=== PATIENT | female | born 1965 | race Caucasian/White ===

== ENCOUNTER 2016-04-22 09:01 | Emergency (ER) | payer BC ==
[~2016-04-22] VITALS: Ht 157.5 cm; Wt 109.8 kg
[~2016-04-22 09:01] MED LIST: CITA10TA59 PO; HYDR25TA4 PO
[2016-04-22] MEDS ORDERED: SODIUM CHLORIDE 0.9% 1,000 ML IV ONE ×2 (09:35→10:16)
[2016-04-22 09:38] LABS: Basophils # (auto) 0 uL; Basophils % (auto) 0.4 % (0.0-2.0); Eosinophils # (auto) 0.2 uL; Eosinophils % (auto) 2.3 % (0.0-7.0); Hematocrit 45.8 % (36.0-46.0); Hemoglobin 15.4 g/dL (12.2-16.2); Lymphocytes # (auto) 2.8 uL; Lymphocytes % (auto) 27.9 % (10.0-50.0); Mean Corpuscular Hemoglobin 29.5 pg (28.0-32.0); Mean Corpuscular Hgb Conc. 33.5 g/dL (32.0-36.0); Mean Platelet Volume 8.3 fL (7.4-10.4); Monocytes # (auto) 0.7 uL; Monocytes % (auto) 7.3 % (0.0-12.0); Neutrophils # (auto) 6.2 uL; Neutrophils % (auto) 62.1 % (37.0-80.0); Platelet Count (auto) 279 10^3/uL (140-450); Red Cell Distribution Width 13.6 % (11.6-16.0)
[2016-04-22] MEDS ORDERED: MECLIZINE HCL 25 MG TAB PO ONE (09:45)
[2016-04-22 09:49] VITALS: BP 119/79
[2016-04-22 10:01] LABS: Albumin 3.7 g/dL (3.4-5.0); Anion Gap 3 (5-15); Aspartate Aminotransferase 13 U/L (15-37); BUN/Creatinine Ratio 14.1; Blood Urea Nitrogen 9 mg/dL (7-18); Calcium 8.8 mg/dL (8.5-10.1); Carbon Dioxide 30 mmol/L (21-32); Chloride 104 mmol/L (98-107); GFR African American 126 mL/min; GFR Non-African American 104 mL/min; Glucose 102 mg/dL (74-106); Magnesium 2.2 mg/dL (1.6-2.6); Potassium 3.9 mmol/L (3.5-5.1); Sodium 137 mmol/L (136-145)
[2016-04-22 10:05] LABS: Alkaline Phosphatase 121 U/L (45-117); Bilirubin, Total 0.2 mg/dL (0.2-1.0); Total Protein 6.9 g/dL (6.4-8.2)
[2016-04-22 10:20] LABS: Urine RBC None Seen /hpf (0 - 4)
[2016-04-22 10:39] LABS: Urine Bilirubin Negative (Negative); Urine Blood Negative /uL (Negative); Urine Color Yellow (Yellow); Urine Glucose Normal (Normal); Urine Ketone Negative (Negative); Urine Nitrite Negative (Negative); Urine Squamous Epithelial Cell FEW /hpf (<5); Urine Urobilinogen Normal (Negative); Urine pH 5.5 (5.0-8.0)
== END 2016-04-22 12:32 | disposition home or self-care (01) ==
LOC: ER 09:02
DX: R42 Dizziness and giddiness (principal); E86.0 Dehydration; R51 Headache; Z79.899 Other long term (current) drug therapy
CPT/HCPCS: 36415; 80053; 81001; 82962; 83735; 84443; 84484; 85025; 93005; 96360; 99285; J7030; J8597

== ENCOUNTER 2016-10-12 14:28 | Emergency (ER) | payer BC ==
[~2016-10-12] VITALS: Ht 160 cm; Wt 107.5 kg
[2016-10-12 14:49] VITALS: BP 130/81
[2016-10-12] MEDS ORDERED: KETOROLAC TROMETH 60MG/2ML VIAL IM ONE (15:15)
== END 2016-10-12 16:41 | disposition home or self-care (01) ==
LOC: ER 14:35
DX: S42.002A Fracture of unspecified part of left clavicle, initial encounter for closed fracture (principal); S70.02XA Contusion of left hip, initial encounter; V43.52XA Car driver injured in collision with other type car in traffic accident, initial encounter; Y93.89 Activity, other specified; Y92.89 Other specified places as the place of occurrence of the external cause; Y99.8 Other external cause status
CPT/HCPCS: 73000; 73010; 96372; 99284; J1885

== ENCOUNTER 2017-02-11 18:00 | Emergency (ER) | payer BC, OTHER ==
[~2017-02-11] VITALS: Ht 160 cm; Wt 105.2 kg
[2017-02-11 18:34] VITALS: BP 128/76
[2017-02-11 20:23] LABS: Hepatitis B Surface Antibody Negative
[2017-02-11 20:34] LABS: Hepatitis B Surface Antigen Negative (Negative)
== END 2017-02-11 18:57 | disposition home or self-care (01) ==
LOC: EDUNIT# 18:04 → ER 18:04
DX: S61.239A Puncture wound without foreign body of unspecified finger without damage to nail, initial encounter (principal); W46.0XXA Contact with hypodermic needle, initial encounter; Y93.89 Activity, other specified; Y99.8 Other external cause status; Y92.89 Other specified places as the place of occurrence of the external cause
CPT/HCPCS: 36415; 86703; 86706; 86803; 87340

== ENCOUNTER 2017-03-28 15:22 | Emergency (ER) | payer BC, OTHER ==
[~2017-03-28] VITALS: Ht 160 cm; Wt 112.0 kg
[2017-03-28 16:10] LABS: Basophils # (auto) 0.1 uL; Basophils % (auto) 1.1 % (0.0-2.0); Eosinophils # (auto) 0.3 uL; Eosinophils % (auto) 2.5 % (0.0-7.0); Hemoglobin 16.6 g/dL (12.2-16.2); Lymphocytes # (auto) 3.5 uL; Lymphocytes % (auto) 31.4 % (10.0-50.0); Mean Corpuscular Hemoglobin 29.8 pg (28.0-32.0); Mean Corpuscular Hgb Conc. 33.8 g/dL (32.0-36.0); Monocytes # (auto) 0.7 uL; Monocytes % (auto) 6.7 % (0.0-12.0); Neutrophils # (auto) 6.5 uL; Neutrophils % (auto) 58.3 % (37.0-80.0); Nucleated Red Blood Cells % 0.7 %; Platelet Count (auto) 277 10^3/uL (140-450); Red Blood Cells 5.57 10^6/uL (4.0-5.20); Red Cell Distribution Width 13.5 % (11.8-14.3); White Blood Cell 11.1 10^3/uL (4.4-10.8)
[2017-03-28] MEDS ORDERED: SODIUM CHLORIDE 0.9% 2,000 ML IV ONE (16:15)
[2017-03-28] MEDS ORDERED: CYANOCOBALAMIN (B-12) 1000 MCG/1 ML VIAL IM ONE (16:15)
[2017-03-28] MEDS ORDERED: PIPERACILLIN-TAZOB 3.375GM 50 ML IV ONE (16:15)
[2017-03-28 16:27] LABS: Albumin 3.6 g/dL (3.4-5.0); BUN/Creatinine Ratio 19.6; Calcium 8.8 mg/dL (8.5-10.1); Potassium 3.6 mmol/L (3.5-5.1)
[2017-03-28 16:30] LABS: Bilirubin, Total 0.2 mg/dL (0.2-1.0); Total Protein 7.4 g/dL (6.4-8.2)
[2017-03-28 18:07] VITALS: BP 122/69
[2017-03-28] MEDS ORDERED: SODIUM CHLORIDE 0.9% 1,000 ML IV ONE (18:30)
== END 2017-03-28 18:58 | disposition home or self-care (01) ==
LOC: ER 15:24
DX: J06.9 Acute upper respiratory infection, unspecified (principal); E86.0 Dehydration; Z90.49 Acquired absence of other specified parts of digestive tract; Z90.710 Acquired absence of both cervix and uterus; Z90.89 Acquired absence of other organs
CPT/HCPCS: 36415; 71046; 80053; 85025; 87804; 93005; 96365; 96372; 99285; J2543; J3420; J7030

== ENCOUNTER → 2017-05-26 | Outpatient (CLI) | payer BC ==
[2017-05-26 08:07] LABS: Basophils # (auto) 0.1 uL; Basophils % (auto) 0.8 % (0.0-2.0); Eosinophils # (auto) 0.2 uL; Eosinophils % (auto) 2.2 % (0.0-7.0); Hematocrit 47.3 % (36.0-46.0); Hemoglobin 16.4 g/dL (12.2-16.2); Lymphocytes # (auto) 2.2 uL; Lymphocytes % (auto) 22.7 % (10.0-50.0); Mean Corpuscular Hemoglobin 30.1 pg (28.0-32.0); Mean Corpuscular Hgb Conc. 34.6 g/dL (32.0-36.0); Mean Corpuscular Volume 87.1 fL (80.0-100.0); Monocytes # (auto) 0.7 uL; Neutrophils # (auto) 6.4 uL; Neutrophils % (auto) 67.3 % (37.0-80.0); Nucleated Red Blood Cells % 0.1 %; Platelet Count (auto) 260 10^3/uL (140-450); Red Blood Cells 5.43 10^6/uL (4.0-5.20); Red Cell Distribution Width 13.9 % (11.8-14.3); White Blood Cell 9.5 10^3/uL (4.4-10.8)
[2017-05-26 08:30] LABS: Urine Bacteria NONE SEEN /hpf (None Seen); Urine Blood Negative /uL (Negative); Urine Specific Gravity 1.023 (1.001-1.035); Urine WBC 1 /hpf (0 - 5)
[2017-05-26 08:31] LABS: Albumin 3.7 g/dL (3.4-5.0); BUN/Creatinine Ratio 13.9; Bilirubin, Total 0.4 mg/dL (0.2-1.0); Calcium 9.1 mg/dL (8.5-10.1); Potassium 3.9 mmol/L (3.5-5.1); Total Protein 7.6 g/dL (6.4-8.2)
== END | disposition home or self-care (01) ==
LOC: LAB 07:30
DX: E16.2 Hypoglycemia, unspecified (principal); E11.9 Type 2 diabetes mellitus without complications; Z79.899 Other long term (current) drug therapy
CPT/HCPCS: 36415; 80053; 80061; 81001; 82607; 83036; 84443; 85025

== ENCOUNTER → 2017-09-01 | Outpatient (CLI) | payer BC ==
[2017-09-01 10:54] LABS: Basophils # (auto) 0.1 uL; Basophils % (auto) 0.6 % (0.0-2.0); Eosinophils # (auto) 0.2 uL; Eosinophils % (auto) 1.8 % (0.0-7.0); Hematocrit 45.9 % (36.0-46.0); Hemoglobin 15.9 g/dL (12.2-16.2); Lymphocytes # (auto) 2.6 uL; Lymphocytes % (auto) 25.1 % (10.0-50.0); Mean Corpuscular Hemoglobin 30.5 pg (28.0-32.0); Mean Corpuscular Hgb Conc. 34.7 g/dL (32.0-36.0); Monocytes # (auto) 0.6 uL; Monocytes % (auto) 6.1 % (0.0-12.0); Neutrophils # (auto) 6.9 uL; Neutrophils % (auto) 66.4 % (37.0-80.0); Nucleated Red Blood Cells % 0.1 %; Platelet Count (auto) 251 10^3/uL (140-450); Red Blood Cells 5.21 10^6/uL (4.0-5.20); Red Cell Distribution Width 13.9 % (11.8-14.3); White Blood Cell 10.4 10^3/uL (4.4-10.8)
[2017-09-01 10:56] LABS: Urine Amorphous Crystal FEW /hpf (None Seen); Urine Bacteria FEW /hpf (None Seen); Urine Blood Negative /uL (Negative); Urine Specific Gravity 1.012 (1.001-1.035); Urine WBC <1 /hpf (0 - 5)
[2017-09-01 11:21] LABS: Free T4 (Free Thyroxine) 1.16 ng/dL (0.89-1.76); Leuteinizing Hormone 17.8 IU/L; Prolactin 6.1 ng/mL (2.8-29.2); T3 Total 1.11 ng/mL (0.60-1.81)
[2017-09-01 11:22] LABS: Follicle Stimulating Hormone 42.21 IU/L (SEE BELOW); Free T3 3.43 pg/mL (2.3-4.2)
[2017-09-01 11:28] LABS: Albumin 3.6 g/dL (3.4-5.0); Bilirubin, Total 0.4 mg/dL (0.2-1.0); Calcium 8.9 mg/dL (8.5-10.1); Potassium 3.7 mmol/L (3.5-5.1); Total Protein 7.3 g/dL (6.4-8.2)
== END | disposition home or self-care (01) ==
LOC: LAB 09:54
DX: E11.42 Type 2 diabetes mellitus with diabetic polyneuropathy (principal); I10 Essential (primary) hypertension; F33.3 Major depressive disorder, recurrent, severe with psychotic symptoms
CPT/HCPCS: 36415; 80053; 80061; 81001; 82043; 82607; 82670; 83001; 83002; 83036; 84146; 84439; 84443; 84480; 84481; 85025; 86038; 87086

== ENCOUNTER 2018-04-30 11:29 | Emergency (ER) | payer BC ==
[~2018-04-30] VITALS: Ht 160 cm; Wt 105.2 kg
[2018-04-30] MEDS ORDERED: SODIUM CHLORIDE 0.9% 500 ML IV ONE (11:35)
[2018-04-30 11:46] VITALS: BP 122/75
[2018-04-30 11:48] LABS: Basophils # (auto) 0.1 uL; Basophils % (auto) 0.7 % (0.0-2.0); Eosinophils # (auto) 0.2 uL; Eosinophils % (auto) 2.3 % (0.0-7.0); Hematocrit 48.2 % (36.0-46.0); Hemoglobin 16.3 g/dL (12.2-16.2); Lymphocytes # (auto) 3.6 uL; Lymphocytes % (auto) 34.3 % (10.0-50.0); Mean Corpuscular Hemoglobin 29.7 pg (28.0-32.0); Mean Corpuscular Hgb Conc. 33.8 g/dL (32.0-36.0); Mean Corpuscular Volume 87.7 fL (80.0-100.0); Monocytes # (auto) 0.7 uL; Monocytes % (auto) 6.8 % (0.0-12.0); Neutrophils % (auto) 55.9 % (37.0-80.0); Nucleated Red Blood Cells % 0.1 %; Platelet Count (auto) 257 10^3/uL (140-450); Red Blood Cells 5.49 10^6/uL (4.0-5.20); Red Cell Distribution Width 13.4 % (11.8-14.3); White Blood Cell 10.6 10^3/uL (4.4-10.8)
[2018-04-30 12:06] LABS: Alanine Aminotransferase 29 U/L (13-56); Albumin 3.8 g/dL (3.4-5.0); Anion Gap 6 (5-15); Aspartate Aminotransferase 12 U/L (15-37); BUN/Creatinine Ratio 13.1; Blood Urea Nitrogen 8 mg/dL (7-18); Calcium 9.1 mg/dL (8.5-10.1); Carbon Dioxide 32 mmol/L (21-32); Chloride 101 mmol/L (98-107); GFR African American 132 mL/min; GFR Non-African American 109 mL/min; Glucose 116 mg/dL (74-106); Magnesium 2.3 mg/dL (1.6-2.6); Potassium 3.5 mmol/L (3.5-5.1); Sodium 139 mmol/L (136-145)
[2018-04-30 12:07] LABS: INR 0.92 (0.9-1.15); Partial Thromboplastin Time 32.5 sec (23.78-33.04); Prothrombin Time 9.9 sec (9.27-12.13)
[2018-04-30 12:11] LABS: Alkaline Phosphatase 103 U/L (45-117); Bilirubin, Total 0.4 mg/dL (0.2-1.0); Total Protein 7.7 g/dL (6.4-8.2)
== END 2018-04-30 13:20 | disposition home or self-care (01) ==
LOC: ER 11:29
DX: E86.0 Dehydration (principal); F41.9 Anxiety disorder, unspecified; F32.9 Major depressive disorder, single episode, unspecified; Z90.49 Acquired absence of other specified parts of digestive tract; Z90.710 Acquired absence of both cervix and uterus
CPT/HCPCS: 36415; 71046; 80053; 83735; 84484; 85025; 85379; 85610; 85730; 93005; 94761; 96360; 99284; J7040

== ENCOUNTER → 2018-12-25 | Outpatient (CLI) | payer BC ==
[2018-12-25 10:07] LABS: Basophils # (auto) 0.1 uL; Eosinophils # (auto) 0.1 uL; Lymphocytes # (auto) 2.3 uL; Nucleated Red Blood Cells % 0.1 %; Urine Bacteria NONE SEEN /hpf (None Seen); Urine Blood Negative /uL (Negative); Urine Specific Gravity 1.007 (1.001-1.035); Urine WBC <1 /hpf (0 - 5)
[2018-12-25 10:08] LABS: Basophils % (auto) 0.7 % (0.0-2.0); Eosinophils % (auto) 1.2 % (0.0-7.0); Hematocrit 51.1 % (36.0-46.0); Hemoglobin 17.8 g/dL (12.2-16.2); Lymphocytes % (auto) 23.1 % (10.0-50.0); Mean Corpuscular Hemoglobin 30.6 pg (28.0-32.0); Mean Corpuscular Hgb Conc. 34.8 g/dL (32.0-36.0); Mean Corpuscular Volume 87.9 fL (80.0-100.0); Monocytes # (auto) 0.5 uL; Monocytes % (auto) 5.5 % (0.0-12.0); Neutrophils # (auto) 6.8 uL; Neutrophils % (auto) 69.5 % (37.0-80.0); Platelet Count (auto) 258 10^3/uL (140-450); Red Blood Cells 5.82 10^6/uL (4.0-5.20); Red Cell Distribution Width 13.7 % (11.8-14.3); White Blood Cell 9.8 10^3/uL (4.4-10.8)
[2018-12-25 10:37] LABS: Free T4 (Free Thyroxine) 1.04 ng/dL (0.89-1.76); Prolactin 6.37 ng/mL (2.8-29.2)
[2018-12-25 10:38] LABS: Free T3 3.08 pg/mL (2.3-4.2); T3 Total 1.32 ng/mL (0.60-1.81)
[2018-12-25 11:09] LABS: BUN/Creatinine Ratio 12.3; Calcium 9.2 mg/dL (8.5-10.1); Potassium 3.6 mmol/L (3.5-5.1)
[2018-12-25 11:10] LABS: Albumin 3.7 g/dL (3.4-5.0); Bilirubin, Total 0.4 mg/dL (0.2-1.0); CRP High Sensitivity 0.561 mg/dL (< 0.3); Total Protein 7.6 g/dL (6.4-8.2); Uric Acid 5.5 mg/dL (2.6-6.0)
[2018-12-25 11:35] LABS: Phosphorus 3.5 mg/dL (2.5-4.90)
[2018-12-25 11:36] LABS: Magnesium 2.2 mg/dL (1.6-2.6)
== END | disposition home or self-care (01) ==
LOC: LAB 09:24
DX: Z00.00 Encounter for general adult medical examination without abnormal findings (principal); E11.9 Type 2 diabetes mellitus without complications; R53.1 Weakness; N39.0 Urinary tract infection, site not specified; F41.9 Anxiety disorder, unspecified; F32.9 Major depressive disorder, single episode, unspecified; E66.9 Obesity, unspecified; I10 Essential (primary) hypertension; Z90.710 Acquired absence of both cervix and uterus; Z90.49 Acquired absence of other specified parts of digestive tract
CPT/HCPCS: 36415; 80053; 80061; 81001; 82043; 82306; 82607; 82670; 83615; 83735; 84100; 84146; 84403; 84439; 84443; 84480; 84481; 84550; 85025; 85652; 86141; 86431

== ENCOUNTER → 2019-05-24 | Emergency (ER) | payer BC ==
[~2019-05-24] VITALS: Ht 157.5 cm; Wt 117.9 kg
[~2019-05-24] MED LIST changes: +FUROSEMIDE 20 MG TAB PO ONE; +FUROSEMIDE 40 MG TAB ONE
[2019-05-24 17:58] LABS: Basophils # (auto) 0 10 ^3/uL (0-0.2); Basophils % (auto) 0.6 % (0.0-2.0); Eosinophils # (auto) 0.1 10 ^3/uL (0-0.8); Eosinophils % (auto) 2.2 % (0.0-7.0); Hematocrit 42.8 % (36.0-46.0); Hemoglobin 14.5 g/dL (12.2-16.2); Lymphocytes # (auto) 2.6 10 ^3/uL (0.4-5.4); Lymphocytes % (auto) 37.3 % (10.0-50.0); Mean Corpuscular Hemoglobin 30.4 pg (28.0-32.0); Mean Corpuscular Hgb Conc. 33.8 g/dL (32.0-36.0); Mean Corpuscular Volume 89.9 fL (80.0-100.0); Monocytes # (auto) 0.7 10 ^3/uL (0-1.3); Monocytes % (auto) 9.7 % (0.0-12.0); Neutrophils # (auto) 3.5 10 ^3/uL (1.6-8.6); Neutrophils % (auto) 50.2 % (37.0-80.0); Nucleated Red Blood Cells % 0.4 %; Platelet Count (auto) 168 10^3/uL (140-450); Red Blood Cells 4.76 10^6/uL (4.0-5.20); White Blood Cell 6.9 10^3/uL (4.4-10.8)
[2019-05-24 18:19] LABS: Albumin 3.1 g/dL (3.4-5.0); Calcium 8.1 mg/dL (8.5-10.1); Potassium 4.1 mmol/L (3.5-5.1)
[2019-05-24 18:24] LABS: BUN/Creatinine Ratio 14.9; Bilirubin, Total 0.4 mg/dL (0.2-1.0); Total Protein 6.5 g/dL (6.4-8.2)
[2019-05-24 18:42] LABS: Urine WBC None Seen /hpf (0 - 5)
[2019-05-24 18:44] VITALS: BP 133/72
[2019-05-24 19:00] LABS: Urine Bacteria NONE SEEN /hpf (None Seen); Urine Blood Negative /uL (Negative)
== END | disposition home or self-care (01) ==
LOC: ER 17:03 → EEVIPCON 17:03
DX: I11.0 Hypertensive heart disease with heart failure (principal); I50.9 Heart failure, unspecified; E11.9 Type 2 diabetes mellitus without complications; Z90.49 Acquired absence of other specified parts of digestive tract; Z90.710 Acquired absence of both cervix and uterus; Z90.89 Acquired absence of other organs
CPT/HCPCS: 36415; 71045; 80053; 81001; 83036; 83880; 84443; 84484; 85025

== ENCOUNTER 2019-05-25 09:55 | Inpatient (IN) | payer BC ==
[~2019-05-25] VITALS: Ht 157.5 cm; Wt 117.9 kg
[~2019-05-25 09:55] MED LIST changes: -FUROSEMIDE 20 MG TAB PO ONE; -FUROSEMIDE 40 MG TAB ONE
[2019-05-25 10:18] VITALS: BP 132/73
--- NOTE | 2019-05-25 11:06 | NUR ---
ARRIVES TO ROOM 209. DIRECT ADMIT. PLEASANT NO SOB AND LUNG SOUNDS CLEAR. 1 PLUS PITTING TO LOWER EXTREMITIES. DR. EVIN SLAUGHTER'S PT. TELE BOX REQUESTED FROM TELE.
[2019-05-25] MEDS ORDERED: NITROGLYCERIN 0.4 MG SL TAB SL PRN (11:15)
[2019-05-25] MEDS ORDERED: DEXTROSE (50%) 50ML SYRG IV PRN ×2 (11:15)
[2019-05-25] MEDS ORDERED: MORPHINE SULF INJ 2 MG/ML SYRINGE 1ML IV PRN (11:15)
[2019-05-25] MEDS ORDERED: ACCU-CHEK COMFORT CURVE STRIP VI SCH (11:30)
[2019-05-25 12:25] VITALS: BP 111/62
[2019-05-25] MEDS: InsuLIN REG 1unit/0.01ml Soln (100units/ml) SC SCH ×2 (13:04→19:34)
[2019-05-25 16:42] VITALS: BP 102/49
[2019-05-25 16:43] VITALS: BP 111/62
--- NOTE | 2019-05-25 18:00 | NUR ---
ADMISSION ASSESSMENT COMPLETED. REPORTS [facility] HAS DECREASED TO 4/10 AND IS ACCEPTABLE. TOLERATES EVENING MEAL FSBS COVERED WITH SLIDING SCALE INSULIN.
--- NOTE | 2019-05-25 19:19 | NUR ---
Opening Shift Note Assumed care of patient, awake and alert. No S/S of distress/SOB or pain. Instructed on POC and to call for assist PRN, will continue to monitor for changes Q1hr and PRN.
--- NOTE | 2019-05-25 20:00 | NUR ---
IV insertion IV access obtained, via clean sterile technique by inserting 22 gauge catheter on left hand after 1 attempt. IV secured properly. No trauma to site. Patient tolerated well.
[2019-05-25] MEDS: ACETAMINOPHEN 500 MG TAB PO PRN (20:34)
[2019-05-25 21:13] LABS: Urine WBC None Seen /hpf (0 - 5)
[2019-05-25 21:37] LABS: Urine Bacteria NONE SEEN /hpf (None Seen); Urine Blood Negative /uL (Negative); Urine Mucus FEW (None Seen); Urine Specific Gravity 1.028 (1.001-1.035)
[2019-05-25 21:54] VITALS: BP 101/52
[2019-05-25] MEDS ORDERED: InsuLIN REG 1unit/0.01ml Soln (100units/ml) SC SCH (22:00)
[2019-05-26 05:00] VITALS: BP 140/74
[2019-05-26 05:40] LABS: BUN/Creatinine Ratio 25.9; Magnesium 2.2 mg/dL (1.6-2.6); Potassium 4.2 mmol/L (3.5-5.1)
[2019-05-26] MEDS: InsuLIN REG 1unit/0.01ml Soln (100units/ml) SC SCH ×2 (06:36→11:30)
--- NOTE | 2019-05-26 07:27 | NUR ---
Endorsed care to day shift RN. Patient awake with no signs of distress/sob/pain.
[2019-05-26 08:00] VITALS: BP 123/67
--- NOTE | 2019-05-26 08:00 | NUR ---
Opening Shift Note Assumed care of patient, awake and alert. No S/S of distress/SOB or pain. Instructed on POC and to call for assist PRN, will continue to monitor for changes Q1hr and PRN.Bed at lowest locked position, bed side rails up x2 and call light within reach.
[2019-05-26] MEDS: ACETAMINOPHEN 500 MG TAB PO PRN (08:56)
--- NOTE | 2019-05-26 08:59 | NUR ---
Pain Patient c/o headache, rates pain 09/19. Patient requests Tylenol for pain. Will continue to monitor. Addendum: 05/26/19 at 0921 by Joycelyn Finnegan RN Medicated patient per MD orders.
[2019-05-26 09:18] VITALS: BP 114/60
[2019-05-26] MEDS ORDERED: PARoxetine 20 MG TAB PO SCH (10:00)
[2019-05-26] MEDS ORDERED: metFORMIN HYDROCHLORIDE 850 MG TAB PO ONE (10:45)
[2019-05-26 12:52] VITALS: BP 114/60
--- NOTE | 2019-05-26 13:44 | NUR ---
Discharge Discharge instructions given as ordered. Encourage to follow up with PMD as instructed. All questions and concerns addressed. Patient verbalized understanding. Medication reconciliation form completed and copy given to patient. IV removed with catheter intact, pressure dressing applied. Telemetry unit returned to ICU. Patient ambulated to vehicle with all personal belongings, accompanied by staff. No distress noted at time of departure.
== END 2019-05-26 14:00 | disposition home or self-care (01) | DRG 638 ==
LOC: TELE-CENTR 09:59
PROVIDERS: ADMIT Internal Medicine; ATTEND Internal Medicine
DX: E11.65 Type 2 diabetes mellitus with hyperglycemia (principal); Z68.42 Body mass index [BMI] 45.0-49.9, adult; F32.9 Major depressive disorder, single episode, unspecified; E66.01 Morbid (severe) obesity due to excess calories; Z79.84 Long term (current) use of oral hypoglycemic drugs; Z79.899 Other long term (current) drug therapy
CPT/HCPCS: 36415; 71046; 80048; 81001; 82962; 83735; 93005; 93306; G0378; J1815

== ENCOUNTER 2019-06-15 18:56 | Inpatient (IN) | payer BC ==
[~2019-06-15] VITALS: Ht 160 cm; Wt 127.0 kg
[2019-06-15] MEDS ORDERED: ACETAMINOPHEN 500 MG TAB PO PRN (19:00)
[2019-06-15] MEDS ORDERED: DEXTROSE (50%) 50ML SYRG IV PRN (19:00)
[2019-06-15] MEDS ORDERED: HYDROcodone-ACET 5/325MG TAB PO PRN (19:00)
[2019-06-15] MEDS ORDERED: NITROGLYCERIN 0.4 MG SL TAB SL PRN (19:00)
[2019-06-15] MEDS ORDERED: ONDANSETRON HCL 4 MG/2 ML VIAL IV PRN (19:00)
[2019-06-15] MEDS ORDERED: MORPHINE SULF INJ 2 MG/ML SYRINGE 1ML IV PRN ×2 (19:00)
[2019-06-15] MEDS ORDERED: ENALAPRILAT 1.25 MG/ML-1ML VIAL IV PRN (19:30)
[2019-06-15 22:00] VITALS: BP 119/79
[2019-06-15] MEDS ORDERED: TEMAZEPAM 15 MG CAP PO PRN (22:00)
[2019-06-15] MEDS: cefTRIAXone 1GM/50ML D5W 50 ML IV SCH (22:24)
[2019-06-15] MEDS: ACCU-CHEK COMFORT CURVE STRIP VI SCH (22:24)
[2019-06-15] MEDS ORDERED: CEPH250C PO (22:59)
[2019-06-15] MEDS ORDERED: METF-371 PO (22:59)
[2019-06-15] MEDS ORDERED: HCTZ25T PO (22:59)
[2019-06-15] MEDS ORDERED: PAR20T PO (22:59)
[2019-06-15] MEDS: InsuLIN REG 1unit/0.01ml Soln (100units/ml) SC SCH (23:02)
[2019-06-15] MEDS: CLINDAMYCIN 600MG IV 50 ML IV SCH (23:21)
[2019-06-16] VITALS (7 sets, daily range): BP systolic 114–136; BP diastolic 62–77
[2019-06-16] MEDS ORDERED: ENOXAPARIN SOD 150 MG/1 ML SYRINGE SC ONE (01:00)
[2019-06-16 06:05] LABS: Basophils # (auto) 0.1 10 ^3/uL (0-0.2); Basophils % (auto) 0.7 % (0.0-2.0); Eosinophils # (auto) 0.3 10 ^3/uL (0-0.8); Eosinophils % (auto) 3.4 % (0.0-7.0); Hemoglobin 15.5 g/dL (12.2-16.2); Lymphocytes # (auto) 3.3 10 ^3/uL (0.4-5.4); Lymphocytes % (auto) 41.4 % (10.0-50.0); Mean Corpuscular Hemoglobin 29.5 pg (28.0-32.0); Mean Corpuscular Hgb Conc. 33.7 g/dL (32.0-36.0); Mean Corpuscular Volume 87.4 fL (80.0-100.0); Monocytes # (auto) 0.7 10 ^3/uL (0-1.3); Monocytes % (auto) 8.8 % (0.0-12.0); Neutrophils # (auto) 3.6 10 ^3/uL (1.6-8.6); Neutrophils % (auto) 45.7 % (37.0-80.0); Nucleated Red Blood Cells % 0.3 %; Platelet Count (auto) 250 10^3/uL (140-450); Red Blood Cells 5.26 10^6/uL (4.0-5.20); Red Cell Distribution Width 14.3 % (11.8-14.3)
[2019-06-16] MEDS: CLINDAMYCIN 600MG IV 50 ML IV SCH ×3 (06:09→22:30)
[2019-06-16] MEDS: ACCU-CHEK COMFORT CURVE STRIP VI SCH ×4 (06:09→22:30)
[2019-06-16] MEDS: InsuLIN REG 1unit/0.01ml Soln (100units/ml) SC SCH ×4 (06:09→22:36)
[2019-06-16 06:21] LABS: INR 1.02 (0.9-1.15); Partial Thromboplastin Time 33.8 sec (23.64-32.05)
[2019-06-16 06:30] LABS: Potassium 3.5 mmol/L (3.5-5.1)
[2019-06-16 06:35] LABS: BUN/Creatinine Ratio 20.4; Calcium 8.6 mg/dL (8.5-10.1)
[2019-06-16] MEDS ORDERED: metFORMIN HYDROCHLORIDE 850 MG TAB PO SCH (08:00)
[2019-06-16] MEDS: cefTRIAXone 1GM/50ML D5W 50 ML IV SCH (09:21)
[2019-06-16] MEDS: PARoxetine 20 MG TAB PO SCH (09:22)
[2019-06-16] MEDS: FLORASTOR (S. BOULARDII) 250 MG CAP PO SCH (09:22)
[2019-06-16] MEDS: ENOXAPARIN SOD 150 MG/1 ML SYRINGE SC SCH ×2 (09:23→22:30)
[2019-06-16] MEDS: FAMOTIDINE 20 MG TAB PO SCH (09:23)
[2019-06-16] MEDS: HCTZ 25 MG TAB PO SCH (09:26)
[2019-06-17 05:00] VITALS: BP 134/89
[2019-06-17] MEDS: CLINDAMYCIN 600MG IV 50 ML IV SCH (06:31)
[2019-06-17] MEDS: ACCU-CHEK COMFORT CURVE STRIP VI SCH ×2 (06:31→12:33)
[2019-06-17] MEDS: InsuLIN REG 1unit/0.01ml Soln (100units/ml) SC SCH ×2 (06:38→12:33)
[2019-06-17 09:06] VITALS: BP 152/72
[2019-06-17] MEDS: cefTRIAXone 1GM/50ML D5W 50 ML IV SCH (09:39)
[2019-06-17] MEDS: FAMOTIDINE 20 MG TAB PO SCH (09:40)
[2019-06-17] MEDS: PARoxetine 20 MG TAB PO SCH (09:40)
[2019-06-17] MEDS: FLORASTOR (S. BOULARDII) 250 MG CAP PO SCH (09:40)
[2019-06-17] MEDS: HCTZ 25 MG TAB PO SCH (09:40)
[2019-06-17] MEDS ORDERED: APIXABAN 5 MG TAB PO SCH (10:00)
[2019-06-17 12:51] VITALS: BP 140/72
[2019-06-24] MEDS ORDERED: APIXABAN 5 MG TAB PO SCH (10:00)
== END 2019-06-17 13:15 | disposition home or self-care (01) | DRG 300 ==
LOC: WEST WING 18:56 → TELE-EAST 06-16 10:27
PROVIDERS: ADMIT Nurse Practitioner Acute Care; ATTEND Internal Medicine Nephrology
DX: I82.811 Embolism and thrombosis of superficial veins of right lower extremity (principal); I50.32 Chronic diastolic (congestive) heart failure; L03.115 Cellulitis of right lower limb; Z68.42 Body mass index [BMI] 45.0-49.9, adult; E11.9 Type 2 diabetes mellitus without complications; I11.0 Hypertensive heart disease with heart failure; I83.90 Asymptomatic varicose veins of unspecified lower extremity; F32.9 Major depressive disorder, single episode, unspecified; F41.9 Anxiety disorder, unspecified; E66.9 Obesity, unspecified; Z90.710 Acquired absence of both cervix and uterus; Z82.0 Family history of epilepsy and other diseases of the nervous system; Z81.8 Family history of other mental and behavioral disorders; Z82.49 Family history of ischemic heart disease and other diseases of the circulatory system; Z87.891 Personal history of nicotine dependence; Z79.899 Other long term (current) drug therapy; Z79.84 Long term (current) use of oral hypoglycemic drugs; Z90.49 Acquired absence of other specified parts of digestive tract; Z98.51 Tubal ligation status; Z79.01 Long term (current) use of anticoagulants
CPT/HCPCS: 36415; 80048; 82962; 85025; 85610; 85730; 93971; G0378; J0696; J1815; J3490

== ENCOUNTER 2019-08-21 09:34 | Emergency (ER) | payer OTHER, BC ==
[~2019-08-21] VITALS: Ht 160 cm; Wt 104.3 kg
[~2019-08-21 09:34] MED LIST changes: -CITA10TA59 PO; +HCTZ25T PO; -HYDR25TA4 PO; +METF-371 PO; +PAR20T PO
[2019-08-21 09:42] VITALS: BP 124/80
[2019-08-21] MEDS ORDERED: KETOROLAC TROMETH 30 MG/ML 1ML VIAL IV ONE (10:00)
[2019-08-21] MEDS ORDERED: ACETAMINOPHEN/CODEINE#3 (300/30mg) TAB PO ONE (10:00)
== END 2019-08-21 11:17 | disposition home or self-care (01) ==
LOC: EEVIPCON 09:34 → EDBD 09:34 → ER 09:34
DX: S46.912A Strain of unspecified muscle, fascia and tendon at shoulder and upper arm level, left arm, initial encounter (principal); S20.212A Contusion of left front wall of thorax, initial encounter; S40.022A Contusion of left upper arm, initial encounter; E11.9 Type 2 diabetes mellitus without complications; I10 Essential (primary) hypertension; Z90.49 Acquired absence of other specified parts of digestive tract; V43.52XA Car driver injured in collision with other type car in traffic accident, initial encounter; Y93.89 Activity, other specified; Y92.488 Other paved roadways as the place of occurrence of the external cause; Y99.8 Other external cause status
CPT/HCPCS: 71101; 73030; 73060; 96374; 99284; J1885

== ENCOUNTER 2019-08-24 07:55 | Emergency (ER) | payer BC ==
[~2019-08-24] VITALS: Ht 160 cm; Wt 104.3 kg
[2019-08-24 09:00] VITALS: BP 128/82
== END 2019-08-24 09:50 | disposition home or self-care (01) ==
LOC: ER 07:55 → EEVIPCON 07:55 → ER 09:50
DX: S22.32XA Fracture of one rib, left side, initial encounter for closed fracture (principal); S40.022A Contusion of left upper arm, initial encounter; S27.321A Contusion of lung, unilateral, initial encounter; F41.9 Anxiety disorder, unspecified; F32.9 Major depressive disorder, single episode, unspecified; E11.9 Type 2 diabetes mellitus without complications; I10 Essential (primary) hypertension; Z79.01 Long term (current) use of anticoagulants; Z79.899 Other long term (current) drug therapy; V49.9XXA Car occupant (driver) (passenger) injured in unspecified traffic accident, initial encounter; Y93.I9 Activity, other involving external motion; Y92.89 Other specified places as the place of occurrence of the external cause; Y99.8 Other external cause status
CPT/HCPCS: 71250; 73200; 93971

== ENCOUNTER 2019-11-25 12:16 | Emergency (ER) | payer BC ==
[~2019-11-25] VITALS: Ht 160 cm; Wt 105.2 kg
[2019-11-25 12:35] VITALS: BP 136/99
[2019-11-25] MEDS ORDERED: KETOROLAC TROMETH 60MG/2ML VIAL IM ONE (13:45)
[2019-11-25 13:59] LABS: Basophils # (auto) 0.1 10 ^3/uL (0-0.2); Basophils % (auto) 0.8 % (0.0-2.0); Eosinophils # (auto) 0.5 10 ^3/uL (0-0.8); Eosinophils % (auto) 4.8 % (0.0-7.0); Hematocrit 47.7 % (36.0-46.0); Hemoglobin 16.3 g/dL (12.2-16.2); Lymphocytes # (auto) 3.8 10 ^3/uL (0.4-5.4); Lymphocytes % (auto) 37.8 % (10.0-50.0); Mean Corpuscular Hemoglobin 29.8 pg (28.0-32.0); Mean Corpuscular Hgb Conc. 34.2 g/dL (32.0-36.0); Mean Corpuscular Volume 87.2 fL (80.0-100.0); Monocytes # (auto) 0.3 10 ^3/uL (0-1.3); Neutrophils # (auto) 5.3 10 ^3/uL (1.6-8.6); Neutrophils % (auto) 53.6 % (37.0-80.0); Nucleated Red Blood Cells % 0.3 %; Platelet Count (auto) 278 10^3/uL (140-450); Red Blood Cells 5.48 10^6/uL (4.0-5.20); Red Cell Distribution Width 13.9 % (11.8-14.3); White Blood Cell 9.9 10^3/uL (4.4-10.8)
[2019-11-25 14:16] LABS: Albumin 3.7 g/dL (3.4-5.0); Calcium 9.1 mg/dL (8.5-10.1); Magnesium 2.2 mg/dL (1.6-2.6); Potassium 3.5 mmol/L (3.5-5.1)
[2019-11-25 14:21] LABS: BUN/Creatinine Ratio 17.9; Bilirubin, Total 0.4 mg/dL (0.2-1.0); Total Protein 7.4 g/dL (6.4-8.2)
== END 2019-11-25 14:03 | disposition home or self-care (01) ==
LOC: EEVIPCON 12:16 → ER 12:16
DX: R51.9 Headache, unspecified (principal); F41.9 Anxiety disorder, unspecified; E11.9 Type 2 diabetes mellitus without complications; I10 Essential (primary) hypertension; Z90.49 Acquired absence of other specified parts of digestive tract; Z90.710 Acquired absence of both cervix and uterus
CPT/HCPCS: 36415; 70450; 80053; 80061; 83735; 84443; 85025; 96372; 99284; J1885

== ENCOUNTER 2019-12-19 07:36 | Emergency (ER) | payer BC ==
[~2019-12-19] VITALS: Ht 160 cm; Wt 107.0 kg
[2019-12-19 07:39] VITALS: BP 127/85
[2019-12-19] MEDS ORDERED: ACETAMINOPHEN 325 MG TAB PO ONE (09:12)
[2019-12-19] MEDS ORDERED: ACETAMINOPHEN 650 mg PER 20.3 mL UD PO ONE (09:15)
== END 2019-12-19 09:52 | disposition home or self-care (01) ==
LOC: EEVIPCON 07:36 → ER 07:36
DX: B34.9 Viral infection, unspecified (principal); R52 Pain, unspecified; E11.9 Type 2 diabetes mellitus without complications; I10 Essential (primary) hypertension; Z90.49 Acquired absence of other specified parts of digestive tract; Z90.710 Acquired absence of both cervix and uterus; Z20.828 Contact with and (suspected) exposure to other viral communicable diseases
CPT/HCPCS: 36415; 71045; 87070; 87426; 87804; 87880; 99284; C9803; U0003

== ENCOUNTER → 2020-02-07 | Outpatient (CLI) | payer BC | END | disposition home or self-care (01) | LOC: LAB 10:18 | PROVIDERS: ATTEND Student in an Organized Health Care Education/Training Program | DX: Z20.828 Contact with and (suspected) exposure to other viral communicable diseases (principal) | CPT/HCPCS: C9803; U0003 ==

== ENCOUNTER 2020-04-03 07:10 | Emergency (ER) | payer BC ==
[~2020-04-03] VITALS: Ht 160 cm; Wt 108.9 kg
[~2020-04-03 07:10] MED LIST changes: -HCTZ25T PO; +HYDR25TA5 PO
[2020-04-03 07:27] VITALS: BP 123/69
[2020-04-03] MEDS ORDERED: SODIUM CHLORIDE 0.9% 1,000 ML IV ONE (07:30)
[2020-04-03] MEDS ORDERED: LORazepam 2MG/ML-1ML VIAL IV ONE (07:30)
[2020-04-03 08:14] LABS: Albumin 3.7 g/dL (3.4-5.0); Potassium 3.6 mmol/L (3.5-5.1)
[2020-04-03 08:17] LABS: BUN/Creatinine Ratio 27.1; Bilirubin, Total 0.4 mg/dL (0.2-1.0); Total Protein 7.2 g/dL (6.4-8.2)
[2020-04-03 08:35] LABS: Basophils # (auto) 0.1 10 ^3/uL (0-0.2); Basophils % (auto) 0.9 % (0.0-2.0); Eosinophils # (auto) 0.3 10 ^3/uL (0-0.8); Eosinophils % (auto) 3.2 % (0.0-7.0); Hematocrit 46.6 % (36.0-46.0); Hemoglobin 15.9 g/dL (12.2-16.2); Lymphocytes # (auto) 3.7 10 ^3/uL (0.4-5.4); Lymphocytes % (auto) 35.2 % (10.0-50.0); Mean Corpuscular Hemoglobin 29.7 pg (28.0-32.0); Mean Corpuscular Hgb Conc. 34.1 g/dL (32.0-36.0); Mean Corpuscular Volume 87.2 fL (80.0-100.0); Monocytes # (auto) 0.6 10 ^3/uL (0-1.3); Monocytes % (auto) 6.1 % (0.0-12.0); Neutrophils # (auto) 5.8 10 ^3/uL (1.6-8.6); Neutrophils % (auto) 54.6 % (37.0-80.0); Nucleated Red Blood Cells % 0.3 %; Red Blood Cells 5.34 10^6/uL (4.0-5.20); White Blood Cell 10.6 10^3/uL (4.4-10.8)
== END 2020-04-03 10:14 | disposition home or self-care (01) ==
LOC: ER 07:10 → EEVIPCON 07:10 → ER 10:14
DX: F41.9 Anxiety disorder, unspecified (principal); E11.9 Type 2 diabetes mellitus without complications; I10 Essential (primary) hypertension; Z90.49 Acquired absence of other specified parts of digestive tract; Z90.710 Acquired absence of both cervix and uterus; Z79.899 Other long term (current) drug therapy; Z20.822 Contact with and (suspected) exposure to COVID-19
CPT/HCPCS: 36415; 71045; 80053; 85025; 87426; 93005; 96361; 96374; 99285; C9803; J2060; J7030; U0003

== ENCOUNTER 2020-11-19 10:49 | Emergency (ER) | payer BC ==
[~2020-11-19] VITALS: Ht 160 cm; Wt 108.9 kg
[2020-11-19 11:03] VITALS: BP 117/78
== END 2020-11-19 13:28 | disposition home or self-care (01) ==
LOC: EEVIPCON 10:49 → ER 10:49
DX: M47.816 Spondylosis without myelopathy or radiculopathy, lumbar region (principal); F41.9 Anxiety disorder, unspecified; F32.9 Major depressive disorder, single episode, unspecified; E11.9 Type 2 diabetes mellitus without complications; I10 Essential (primary) hypertension; Z79.84 Long term (current) use of oral hypoglycemic drugs; Z79.899 Other long term (current) drug therapy; Z90.89 Acquired absence of other organs; Z90.49 Acquired absence of other specified parts of digestive tract; Z90.710 Acquired absence of both cervix and uterus
CPT/HCPCS: 72131

== ENCOUNTER 2021-02-21 18:20 | Emergency (ER) | payer BC ==
[~2021-02-21] VITALS: Ht 160 cm; Wt 108.9 kg
[2021-02-21 18:59] LABS: Basophils # (auto) 0.1 10 ^3/uL (0-0.2); Basophils % (auto) 0.5 % (0.0-2.0); Eosinophils # (auto) 0.2 10 ^3/uL (0-0.8); Hematocrit 46.9 % (36.0-46.0); Hemoglobin 16.1 g/dL (12.2-16.2); Lymphocytes # (auto) 3.8 10 ^3/uL (0.4-5.4); Lymphocytes % (auto) 32.2 % (10.0-50.0); Mean Corpuscular Hemoglobin 29.8 pg (28.0-32.0); Mean Corpuscular Hgb Conc. 34.4 g/dL (32.0-36.0); Mean Corpuscular Volume 86.7 fL (80.0-100.0); Monocytes % (auto) 8.5 % (0.0-12.0); Neutrophils # (auto) 6.7 10 ^3/uL (1.6-8.6); Neutrophils % (auto) 56.8 % (37.0-80.0); Nucleated Red Blood Cells % 0.2 %; Red Blood Cells 5.42 10^6/uL (4.0-5.20); Red Cell Distribution Width 13.5 % (11.8-14.3); White Blood Cell 11.7 10^3/uL (4.4-10.8)
[2021-02-21 19:16] LABS: Albumin 3.4 g/dL (3.4-5.0); BUN/Creatinine Ratio 16.1; Calcium 8.8 mg/dL (8.5-10.1); Potassium 3.7 mmol/L (3.5-5.1)
[2021-02-21 19:18] LABS: Bilirubin, Total 0.4 mg/dL (0.2-1.0)
[2021-02-21] MEDS ORDERED: ACET30TA15 PO (21:06)
[2021-02-21] MEDS ORDERED: ONDA-144 PO (21:06)
[2021-02-21] MEDS ORDERED: CIPR-173 PO (21:06)
[2021-02-21 21:08] VITALS: BP 107/69
[2021-02-21 21:33] LABS: Urine Bacteria FEW /hpf (None Seen); Urine Blood 1+ /uL (Negative); Urine Specific Gravity 1.022 (1.001-1.035); Urine WBC 4 /hpf (0 - 5)
== END 2021-02-21 21:17 | disposition home or self-care (01) ==
LOC: EEVIPCON 18:20 → ER 18:35
DX: N39.0 Urinary tract infection, site not specified (principal); E11.9 Type 2 diabetes mellitus without complications; I10 Essential (primary) hypertension; Z90.49 Acquired absence of other specified parts of digestive tract; Z90.89 Acquired absence of other organs; Z90.710 Acquired absence of both cervix and uterus; Z20.822 Contact with and (suspected) exposure to COVID-19
CPT/HCPCS: 36415; 74176; 80053; 81001; 82150; 83690; 85025; 87086; 87426

== ENCOUNTER 2021-03-17 11:37 | Emergency (ER) | payer BC ==
[~2021-03-17] VITALS: Ht 160 cm; Wt 110.2 kg
[~2021-03-17 11:37] MED LIST changes: +ACET30TA15 PO; +CIPR-173 PO; +ONDA-144 PO
[2021-03-17 13:07] LABS: Urine Bacteria NONE SEEN /hpf (None Seen); Urine Blood Negative /uL (Negative); Urine Specific Gravity 1.018 (1.001-1.035); Urine WBC <1 /hpf (0 - 5)
[2021-03-17] MEDS ORDERED: HYDROcodone-ACET 10/325MG TAB PO ONE (13:15)
[2021-03-17] MEDS ORDERED: LIDOCAINE 5% TOPICAL PATCH TOP ONE (13:15)
[2021-03-17 13:25] LABS: Albumin 3.6 g/dL (3.4-5.0); Potassium 3.8 mmol/L (3.5-5.1)
[2021-03-17 13:29] LABS: Basophils # (auto) 0.1 10 ^3/uL (0-0.2); Basophils % (auto) 0.6 % (0.0-2.0); Eosinophils # (auto) 0.2 10 ^3/uL (0-0.8); Eosinophils % (auto) 2.1 % (0.0-7.0); Hematocrit 45.9 % (36.0-46.0); Hemoglobin 15.8 g/dL (12.2-16.2); Lymphocytes # (auto) 3.2 10 ^3/uL (0.4-5.4); Lymphocytes % (auto) 30.7 % (10.0-50.0); Mean Corpuscular Hemoglobin 29.9 pg (28.0-32.0); Mean Corpuscular Hgb Conc. 34.4 g/dL (32.0-36.0); Mean Corpuscular Volume 87.1 fL (80.0-100.0); Monocytes # (auto) 0.6 10 ^3/uL (0-1.3); Monocytes % (auto) 5.5 % (0.0-12.0); Neutrophils # (auto) 6.4 10 ^3/uL (1.6-8.6); Neutrophils % (auto) 61.1 % (37.0-80.0); Nucleated Red Blood Cells % 0.2 %; Red Blood Cells 5.28 10^6/uL (4.0-5.20); Red Cell Distribution Width 13.6 % (11.8-14.3); White Blood Cell 10.5 10^3/uL (4.4-10.8)
[2021-03-17 13:31] LABS: BUN/Creatinine Ratio 20.4; Bilirubin, Total 0.3 mg/dL (0.2-1.0)
[2021-03-17] MEDS ORDERED: IOHEXOL 300 MG/ML 100ML BOTTLE IJ ONE (13:51)
[2021-03-17 15:13] VITALS: BP 111/67
[2021-03-17] MEDS ORDERED: HYDR-4798 PO (15:38)
[2021-03-17] MEDS ORDERED: HYDR-4902 PO ×2 (17:39→18:54)
== END 2021-03-17 15:51 | disposition home or self-care (01) ==
LOC: EEVIPCON 11:37 → ER 11:37
DX: R10.9 Unspecified abdominal pain (principal); E11.9 Type 2 diabetes mellitus without complications; I10 Essential (primary) hypertension; Z90.49 Acquired absence of other specified parts of digestive tract; Z90.89 Acquired absence of other organs
CPT/HCPCS: 36415; 74177; 80053; 81001; 83605; 85025; 87086; 99285; Q9967

== ENCOUNTER 2021-06-11 07:21 | Emergency (ER) | payer BC ==
[~2021-06-11] VITALS: Ht 160 cm; Wt 107.0 kg
[2021-06-11 07:31] VITALS: BP 116/75
== END 2021-06-11 08:38 | disposition home or self-care (01) ==
LOC: EEVIPCON 07:21 → ER 07:21
DX: S05.12XA Contusion of eyeball and orbital tissues, left eye, initial encounter (principal); E11.9 Type 2 diabetes mellitus without complications; I10 Essential (primary) hypertension; Z90.49 Acquired absence of other specified parts of digestive tract; Z90.89 Acquired absence of other organs; W01.0XXA Fall on same level from slipping, tripping and stumbling without subsequent striking against object, initial encounter; Y93.89 Activity, other specified; Y92.89 Other specified places as the place of occurrence of the external cause; Y99.8 Other external cause status
CPT/HCPCS: 70486

== ENCOUNTER 2021-07-01 07:05 | Emergency (ER) | payer BC ==
[~2021-07-01] VITALS: Ht 160 cm; Wt 105.2 kg
[2021-07-01] MEDS ORDERED: ACETAMINOPHEN 325 MG TAB PO ONE (07:30)
[2021-07-01 07:50] VITALS: BP 143/69
[2021-07-01] MEDS ORDERED: DOXY-332 PO (08:18)
[2021-07-01] MEDS ORDERED: BENZ100C19 PO (08:18)
== END 2021-07-01 08:18 | disposition home or self-care (01) ==
LOC: ER 07:05
DX: J06.9 Acute upper respiratory infection, unspecified (principal); N39.0 Urinary tract infection, site not specified; I10 Essential (primary) hypertension; E11.9 Type 2 diabetes mellitus without complications; Z90.49 Acquired absence of other specified parts of digestive tract; Z90.89 Acquired absence of other organs; Z90.710 Acquired absence of both cervix and uterus; Z20.822 Contact with and (suspected) exposure to COVID-19
CPT/HCPCS: 36415; 71046; 81002; 87804

== ENCOUNTER 2021-09-17 08:30 | Emergency (ER) | payer BC ==
[~2021-09-17] VITALS: Ht 160 cm; Wt 100.0 kg
[~2021-09-17 08:30] MED LIST changes: +ACE3T PO; +BENZ100C19 PO; +DOXY-332 PO
[2021-09-17] MEDS ORDERED: KETOROLAC TROMETH 60MG/2ML VIAL IM ONE (09:00)
[2021-09-17 09:58] LABS: Basophils # (auto) 0.1 10 ^3/uL (0-0.2); Basophils % (auto) 0.7 % (0.0-2.0); Eosinophils # (auto) 0.3 10 ^3/uL (0-0.8); Eosinophils % (auto) 3.2 % (0.0-7.0); Hematocrit 49.2 % (36.0-46.0); Hemoglobin 16.9 g/dL (12.2-16.2); Lymphocytes # (auto) 3.3 10 ^3/uL (0.4-5.4); Lymphocytes % (auto) 31.5 % (10.0-50.0); Mean Corpuscular Hemoglobin 29.9 pg (28.0-32.0); Mean Corpuscular Hgb Conc. 34.3 g/dL (32.0-36.0); Mean Corpuscular Volume 87.1 fL (80.0-100.0); Monocytes # (auto) 0.6 10 ^3/uL (0-1.3); Neutrophils # (auto) 6.2 10 ^3/uL (1.6-8.6); Neutrophils % (auto) 58.6 % (37.0-80.0); Nucleated Red Blood Cells % 0.2 %; Red Blood Cells 5.65 10^6/uL (4.0-5.20); Red Cell Distribution Width 13.7 % (11.8-14.3); White Blood Cell 10.6 10^3/uL (4.4-10.8)
[2021-09-17 09:59] LABS: Urine Bacteria NONE SEEN /hpf (None Seen); Urine Blood Negative /uL (Negative); Urine Specific Gravity 1.016 (1.001-1.035); Urine WBC <1 /hpf (0 - 5)
[2021-09-17] MEDS ORDERED: ACE3T PO ×2 (10:06→10:08)
[2021-09-17] MEDS ORDERED: IBUP800T27 PO (10:06)
[2021-09-17 10:33] LABS: Albumin 3.8 g/dL (3.4-5.0); Calcium 9.1 mg/dL (8.5-10.1)
[2021-09-17 10:37] LABS: BUN/Creatinine Ratio 19.4; Bilirubin, Total 0.3 mg/dL (0.2-1.0); Total Protein 7.3 g/dL (6.4-8.2)
[2021-09-17 11:08] VITALS: BP 130/68
== END 2021-09-17 11:10 | disposition home or self-care (01) ==
LOC: ER 08:30 → EEVIPCON 08:30 → ER 11:10
DX: E86.0 Dehydration (principal); E11.9 Type 2 diabetes mellitus without complications; I10 Essential (primary) hypertension; Z90.89 Acquired absence of other organs; Z90.710 Acquired absence of both cervix and uterus
CPT/HCPCS: 36415; 74176; 80053; 81001; 85025; 96372; 99284; J1885

== ENCOUNTER 2021-10-06 16:18 | Emergency (ER) | payer BC ==
[~2021-10-06] VITALS: Ht 160 cm; Wt 105.4 kg
[~2021-10-06 16:18] MED LIST changes: +IBUP800T27 PO
[2021-10-06] MEDS ORDERED: CHOLECALCIFEROL (VITD3) 2,000 UNIT CAP/TAB PO ONE (16:45)
[2021-10-06] MEDS ORDERED: SODIUM CHLORIDE 0.9% 1,000 ML IVB ONE (16:45)
[2021-10-06] MEDS ORDERED: SODIUM CHLORIDE 0.9% 1,000 ML IV ONE (16:45)
[2021-10-06] MEDS ORDERED: ASCORBIC ACID 500 MG TAB PO ONE (16:45)
[2021-10-06] MEDS ORDERED: ASPirin-EC 325mg tab PO ONE (16:45)
[2021-10-06] MEDS ORDERED: AZITHROMYCIN 500MG/ 250ML 250 ML IV ONE (16:45)
[2021-10-06] MEDS ORDERED: ZINC SULFATE 220mg CAP or TAB PO ONE (16:45)
[2021-10-06 18:14] LABS: Basophils # (auto) 0.1 10 ^3/uL (0-0.2); Basophils % (auto) 0.7 % (0.0-2.0); Eosinophils # (auto) 0.3 10 ^3/uL (0-0.8); Eosinophils % (auto) 2.7 % (0.0-7.0); Hematocrit 49.6 % (36.0-46.0); Hemoglobin 16.6 g/dL (12.2-16.2); Lymphocytes # (auto) 2.9 10 ^3/uL (0.4-5.4); Lymphocytes % (auto) 31.7 % (10.0-50.0); Mean Corpuscular Hgb Conc. 33.5 g/dL (32.0-36.0); Mean Corpuscular Volume 86.5 fL (80.0-100.0); Monocytes # (auto) 0.5 10 ^3/uL (0-1.3); Monocytes % (auto) 5.3 % (0.0-12.0); Neutrophils # (auto) 5.5 10 ^3/uL (1.6-8.6); Neutrophils % (auto) 59.6 % (37.0-80.0); Nucleated Red Blood Cells % 0.7 %; Red Blood Cells 5.73 10^6/uL (4.0-5.20); Red Cell Distribution Width 13.4 % (11.8-14.3); White Blood Cell 9.2 10^3/uL (4.4-10.8)
[2021-10-06 18:27] LABS: Urine Bacteria FEW /hpf (None Seen); Urine Blood Negative /uL (Negative); Urine Specific Gravity 1.017 (1.001-1.035); Urine WBC 2 /hpf (0 - 5)
[2021-10-06 18:32] LABS: Albumin 3.7 g/dL (3.4-5.0); BUN/Creatinine Ratio 10.6; Potassium 3.8 mmol/L (3.5-5.1)
[2021-10-06 18:35] LABS: Bilirubin, Total 0.4 mg/dL (0.2-1.0); Total Protein 7.5 g/dL (6.4-8.2)
[2021-10-06] MEDS ORDERED: ZINC220C10 PO (18:38)
[2021-10-06] MEDS ORDERED: CHOL500035 PO (18:38)
[2021-10-06] MEDS ORDERED: AZIT500T PO (18:38)
[2021-10-06] MEDS ORDERED: ASCO500T11 PO (18:38)
[2021-10-06 19:43] VITALS: BP 118/68
== END 2021-10-06 20:10 | disposition home or self-care (01) ==
LOC: EEVIPCON 16:20 → ER 16:20
DX: U07.1 COVID-19 (principal); E11.65 Type 2 diabetes mellitus with hyperglycemia; M79.10 Myalgia, unspecified site; Z90.89 Acquired absence of other organs; Z98.51 Tubal ligation status; Z90.49 Acquired absence of other specified parts of digestive tract; Z90.710 Acquired absence of both cervix and uterus
CPT/HCPCS: 36415; 71250; 80053; 81001; 83735; 85025; 87040; 96365; 99284; J0456; J7030

== ENCOUNTER → 2021-10-18 | Outpatient (CLI) | payer BC ==
[~2021-10-18] MED LIST changes: +ASCO500T11 PO; +AZIT500T PO; +CHOL500035 PO; +ZINC220C10 PO
[2021-10-18 08:12] LABS: Urine Blood Negative /uL (Negative); Urine Specific Gravity 1.007 (1.001-1.035)
[2021-10-18 08:39] LABS: Cholesterol 206 mg/dL (< 200); HDL Cholesterol 36 mg/dL (40-59); LDL Cholesterol 134 mg/dL (< 100); Triglycerides 292 mg/dL (< 150)
== END | disposition home or self-care (01) ==
LOC: LAB 07:43
PROVIDERS: ATTEND Internal Medicine
DX: E11.9 Type 2 diabetes mellitus without complications (principal)
CPT/HCPCS: 36415; 80061; 81003; 82043; 83036; 84443

== ENCOUNTER → 2021-11-06 | Outpatient (CLI) | payer BC | END | disposition home or self-care (01) | LOC: XYW 08:49 | PROVIDERS: ATTEND Internal Medicine | DX: I50.9 Heart failure, unspecified (principal) | CPT/HCPCS: 93306 ==

== ENCOUNTER → 2021-12-26 | Outpatient (CLI) | payer BC ==
[2021-12-26 08:55] LABS: Albumin 3.9 g/dL (3.4-5.0); Bilirubin, Direct 0.2 mg/dL (0-0.2); Bilirubin, Total 0.5 mg/dL (0.2-1.0)
== END | disposition home or self-care (01) ==
LOC: LAB 07:58
PROVIDERS: ATTEND Internal Medicine
DX: E78.5 Hyperlipidemia, unspecified (principal)
CPT/HCPCS: 36415; 80076

== ENCOUNTER → 2022-03-26 | Emergency (ER) | payer BC, OTHER ==
[~2022-03-26] VITALS: Ht 160 cm; Wt 104.0 kg
[~2022-03-26] MED LIST changes: +KETOROLAC TROMETH 60MG/2ML VIAL IM ONE; +PRED20TA2 PO; +methylPREDNISolone SOD SUCC 125 MG/2 ML VL IM ONE
[2022-03-26 07:42] VITALS: BP 118/72
== END | disposition home or self-care (01) ==
LOC: EEVIPCON 07:36 → ER 07:36
DX: M54.59 Other low back pain (principal); I10 Essential (primary) hypertension; F41.9 Anxiety disorder, unspecified; F32.9 Major depressive disorder, single episode, unspecified; E11.9 Type 2 diabetes mellitus without complications; Z90.49 Acquired absence of other specified parts of digestive tract; Z79.899 Other long term (current) drug therapy; Z90.710 Acquired absence of both cervix and uterus; Z90.89 Acquired absence of other organs; Z87.891 Personal history of nicotine dependence
CPT/HCPCS: 96372; 99284; J1885; J2930

== ENCOUNTER → 2022-06-18 | Outpatient (CLI) | payer BC ==
[~2022-06-18] MED LIST changes: +CYCL-837 PO; -KETOROLAC TROMETH 60MG/2ML VIAL IM ONE; -methylPREDNISolone SOD SUCC 125 MG/2 ML VL IM ONE
[2022-06-18 09:53] LABS: Albumin 3.8 g/dL (3.4-5.0); Calcium 9.5 mg/dL (8.5-10.1); Potassium 3.1 mmol/L (3.5-5.1)
[2022-06-18 10:00] LABS: Bilirubin, Total 0.5 mg/dL (0.2-1.0); Total Protein 7.2 g/dL (6.4-8.2)
== END | disposition home or self-care (01) ==
LOC: LAB 08:39
PROVIDERS: ATTEND Internal Medicine
DX: Z12.11 Encounter for screening for malignant neoplasm of colon (principal); E11.9 Type 2 diabetes mellitus without complications
CPT/HCPCS: 36415; 80053; 80061; 82570; 83036

== ENCOUNTER → 2022-09-25 | Outpatient (CLI) | payer BC ==
[~2022-09-25] MED LIST changes: -DOXY-332 PO; +DOXY-448 PO; +IBUP-1456 PO; -IBUP800T27 PO
[2022-09-25 08:45] LABS: Albumin 3.8 g/dL (3.4-5.0); Anion Gap 7 (5-15); Carbon Dioxide 28 mmol/L (21-32); Chloride 104 mmol/L (98-107); Potassium 3.4 mmol/L (3.5-5.1); Sodium 139 mmol/L (136-145)
[2022-09-25 08:52] LABS: Alanine Aminotransferase 19 U/L (13-56); Alkaline Phosphatase 85 U/L (45-117); Aspartate Aminotransferase 13 U/L (15-37); BUN/Creatinine Ratio 9.7 (10.0-20.0); Bilirubin, Direct < 0.1 mg/dL (0-0.2); Bilirubin, Total 0.4 mg/dL (0.2-1.0); Blood Urea Nitrogen 7 mg/dL (7-18); Calcium 9.5 mg/dL (8.5-10.1); Cholesterol 187 mg/dL (< 200); GFR African American 108 mL/min; GFR Non-African American 89 mL/min; Glucose 90 mg/dL (74-106); HDL Cholesterol 35 mg/dL (40-59); LDL Cholesterol 124 mg/dL (< 100); Total Protein 7.3 g/dL (6.4-8.2); Triglycerides 231 mg/dL (< 150)
== END | disposition home or self-care (01) ==
LOC: LAB 07:32
PROVIDERS: ATTEND Internal Medicine
DX: E11.9 Type 2 diabetes mellitus without complications (principal); E78.5 Hyperlipidemia, unspecified
CPT/HCPCS: 36415; 80053; 80061; 80076; 83036

== ENCOUNTER 2023-01-23 07:09 | Emergency (ER) | payer BC ==
[~2023-01-23] VITALS: Ht 160 cm; Wt 90.0 kg
[~2023-01-23 07:09] MED LIST changes: +AZITTAB PO; +LORA-1121 PO
[2023-01-23 07:28] VITALS: BP 105/65; PULSE 106; RESP 18; TEMP 97.4; O2SAT 99
[2023-01-23] MEDS ORDERED: LORazepam 0.5 MG TAB PO ONE (07:30)
[2023-01-23] MEDS ORDERED: KETOROLAC TROMETH 60MG/2ML VIAL IM ONE (07:30)
[2023-01-23] MEDS ORDERED: TRAM50TA2 PO (08:07)
[2023-01-23] MEDS ORDERED: PRED20TA2 PO (08:07)
== END 2023-01-23 08:24 | disposition home or self-care (01) ==
LOC: ER 07:09 → EEVIPCON 07:09 → ER 08:22
DX: M48.061 Spinal stenosis, lumbar region without neurogenic claudication (principal); M54.16 Radiculopathy, lumbar region; I10 Essential (primary) hypertension; E11.9 Type 2 diabetes mellitus without complications; F41.9 Anxiety disorder, unspecified; F32.9 Major depressive disorder, single episode, unspecified; Z98.890 Other specified postprocedural states; Z87.891 Personal history of nicotine dependence; Z79.899 Other long term (current) drug therapy
CPT/HCPCS: 96372; 99283; J1885

== ENCOUNTER 2023-04-26 14:26 | Emergency (ER) | payer BC, OTHER ==
[~2023-04-26] VITALS: Ht 160 cm; Wt 90.0 kg
[~2023-04-26 14:26] MED LIST changes: +TRAM50TA2 PO
[2023-04-26] MEDS: ONDANSETRON ODT 4 MG TAB PO ONE (15:05)
[2023-04-26 15:13] VITALS: TEMP 98.3; O2SAT 97
[2023-04-26] MEDS: MORPHINE SULFATE INJ 2 MG/ml SYRG IM ONE (15:13)
[2023-04-26] MEDS ORDERED: CYCL-614 PO (15:29)
[2023-04-26] MEDS: KETOROLAC TROMETH 60MG/2ML VIAL IM ONE (15:36)
[2023-04-26 15:39] VITALS: BP 103/65; PULSE 77; RESP 18
== END 2023-04-26 15:48 | disposition home or self-care (01) ==
LOC: ER 14:26
DX: G44.209 Tension-type headache, unspecified, not intractable (principal); I10 Essential (primary) hypertension; E11.9 Type 2 diabetes mellitus without complications; F41.9 Anxiety disorder, unspecified; F32.9 Major depressive disorder, single episode, unspecified; Z98.890 Other specified postprocedural states; Z87.891 Personal history of nicotine dependence
CPT/HCPCS: 70450; 96372; 99285; J1885; J2270; Q0162

== ENCOUNTER → 2023-08-29 | Outpatient (CLI) | payer BC, OTHER ==
[~2023-08-29] MED LIST changes: +CYCL-614 PO
[2023-08-29 09:11] LABS: Alanine Aminotransferase 14 U/L (7-40); Albumin 4.4 g/dL (3.2-4.8); Alkaline Phosphatase 76 U/L (46-116); Anion Gap 6 (5-15); Aspartate Aminotransferase 11 U/L (13-40); BUN/Creatinine Ratio 16.9 (10.0-20.0); Bilirubin, Total 0.4 mg/dL (0.2-1.0); Blood Urea Nitrogen 10 mg/dL (9-23); Calcium 9.7 mg/dL (8.7-10.4); Carbon Dioxide 27 mmol/L (20-30); Chloride 105 mmol/L (98-107); Glucose 100 mg/dL (74-106); Potassium 3.7 mmol/L (3.5-5.1); Sodium 138 mmol/L (136-145); Total Protein 6.7 g/dL (5.7-8.2); Uric Acid 4.2 mg/dL (3.1-7.8)
[2023-08-29 09:58] LABS: Erythrocyte Sedimentation Rate 8 mm/hr (0-20)
== END | disposition home or self-care (01) ==
LOC: LAB 08:09
PROVIDERS: ATTEND Internal Medicine
DX: E11.9 Type 2 diabetes mellitus without complications (principal); M25.561 Pain in right knee
CPT/HCPCS: 36415; 80053; 83036; 84550; 85652; 86431

== ENCOUNTER 2023-12-07 06:55 | Emergency (ER) | payer BC, OTHER ==
[~2023-12-07] VITALS: Ht 160 cm; Wt 85.4 kg
[~2023-12-07 06:55] MED LIST changes: +ALPR1TAB PO; -DOXY-448 PO; +DOXY100C79 PO
[2023-12-07] MEDS: methylPREDNISolone SOD SUCC 125 MG/2 ML VL IM ONE (07:09)
[2023-12-07] MEDS: KETOROLAC TROMETH 60MG/2ML VIAL IM ONE (07:10)
[2023-12-07 07:24] VITALS: BP 115/70; PULSE 89; RESP 18; TEMP 97.6; O2SAT 96
[2023-12-07] MEDS ORDERED: HYDR-4902 PO (07:37)
== END 2023-12-07 07:41 | disposition home or self-care (01) ==
LOC: ER 06:55
DX: M19.90 Unspecified osteoarthritis, unspecified site (principal)
CPT/HCPCS: 96372; 99284; J1885; J2919

== ENCOUNTER 2023-12-23 07:13 | Emergency (ER) | payer BC, OTHER ==
[~2023-12-23] VITALS: Ht 160 cm; Wt 85.4 kg
[~2023-12-23 07:13] MED LIST changes: +HYDR-4902 PO
[2023-12-23 07:15] VITALS: BP 125/78; PULSE 82; RESP 20; TEMP 97.8; O2SAT 98
[2023-12-23] MEDS: HYDROcodone-ACET 10/325MG TAB PO ONE (07:30)
--- NOTE | 2023-12-23 08:10 | ED.PDOC ---
History of Present Illness HPI Comments 58y F who presents to the ED for chief complaint of back and bilateral hip pain. Pt states she has been having lower back pain that radiates to her hips and has been affecting her gait for the past 1 month. Pt states the pain is constant, rating the pain 7/10, with no associated exacerbating or relieving factors. Pt otherwise denies any recent fall or trauma. Pt denies any associated nausea, vomiting, diarrhea, fever, chills, headache, dizziness, chest pain or shortness of breath. Pt otherwise has noted stable vitals in the ED. Pt has noted history of chronic back pain. Pt otherwise denies any other symptoms at this time. Chief Complaint: Back Pain Time Seen by MD: 07:30 Primary Care Provider: TANISHA Reviewed Notes: Nurses Notes, Medications, Allergies Allergies: Coded Allergies: NO KNOWN ALLERGIES (Unverified , 01/16/10) Home Meds Active Scripts Hydrocodone-Acetaminophen (Hydrocodone Bitartrate/AC 5-325 mg) 1 Tab Tab, 1 TAB PO DAILY for 5 Days, #5 TAB Prov:LG WYATT MD 12/07/23 Hydrocodone-Acetaminophen (Hydrocodone Bitartrate/AC 5-325 mg) 1 Tab Tab, 1 TAB PO DAILY for 5 Days, #5 TAB Prov:LG WYATT MD 12/07/23 Alprazolam (Xanax Xr) 1 Mg Tab, 1 TAB PO BID, #20 TAB Prov:MAYRA BAILEY 10/08/23 Lorazepam (ATIVAN TABLET) 0.5 Mg Tb, 1 TAB PO BID, #20 TAB Prov:MAYRA BAILEY 05/08/23 Ibuprofen (Ibuprofen) 800 Mg Tab, 1 TAB PO TID PRN, #30 TAB 0 Refills Prov:ИРИНА GUAJARDO 04/26/23 Cyclobenzaprine HCl (Cyclobenzaprine Hydrochlo) 5 Mg Tab, 5 MG PO QHSP, #14 TAB 0 Refills Prov:ИРИНА GUAJARDO 04/26/23 Tramadol Hcl (Tramadol Hcl) 50 Mg Tab, 50 MG PO BID, #20 TAB Prov:MAYRA BAILEY 01/23/23 Prednisone (Prednisone) 20 Mg Tab, 40 MG PO DAILY, #20 TAB Prov:MAYRA BAILEY 01/23/23 Lorazepam (ATIVAN TABLET) 0.5 Mg Tb, 1 TAB PO BID, #20 TAB Prov:MAYRA BAILEY 12/18/22 Azithromycin (Zithromax Z-Young) 250 Mg Tab, 250 MG PO DAILY for 5 Days, #6 TAB Prov:UNRULY ALLEN NP 10/20/22 Cyclobenzaprine Hcl (Cyclobenzaprine Hcl) 5 Mg Tab, 1 TAB PO TID PRN, #30 TAB Prov:ARIELLE CABELLOP 05/02/22 Acetaminophen W/ Codeine (Codeine/Acetaminophen) 1 Tab Tab, 1 TAB PO BID for 10 Days, #20 TAB Prov:ARIELLE CABELLO 05/02/22 Prednisone (Prednisone) 20 Mg Tab, 20 MG PO DAILY for 10 Days, #20 MG Prov:LG WYATT MD 03/26/22 Acetaminophen W/ Codeine (Codeine/Acetaminophen) 1 Tab Tab, 1 TAB PO BID for 15 Days, #30 TAB Prov:AFIA DEAN MD 03/21/22 Zinc Sulfate (Zinc) 220 Mg Cap, 220 MG PO DAILY for 30 Days, #30 CAP Prov:ADRIENNE CISNEROS MD 10/06/21 Cholecalciferol (Vitamin D) 5,000 Unit Cap, 5000 UNIT PO DAILY for 30 Days, #30 CAP Prov:ADRIENNE CISNEROS MD 10/06/21 Ascorbic Acid (VITAMIN C TABLET) 500 Mg Tb, 2 TAB PO TID for 10 Days, #60 TAB 3 Refills Prov:ADRIENNE CISNEROS MD 10/06/21 Azithromycin (Zithromax) 500 Mg Tab, 1 TAB PO DAILY for 5 Days, #5 TAB Prov:ADRIENNE CISNEROS MD 10/06/21 Acetaminophen W/ Codeine (Tylenol W/Cod #3) 1 Tab Tb, 1 TAB PO QIDP, #10 TAB 0 Refills Prov:ИРИНА GUAJARDO 09/17/21 Ibuprofen (Ibuprofen) 800 Mg Tab, 1 TAB PO TID PRN, #30 TAB 0 Refills Prov:ИРИНА GUAJARDO 09/17/21 Acetaminophen W/ Codeine (Tylenol W/Cod #3) 1 Tab Tb, 1 TAB PO DAILY for 20 Days, #20 TAB Prov:AFIA DEAN MD 07/23/21 Benzonatate (Tessalon Perles) 100 Mg Cap, 1 CAP PO TID PRN, #30 CAP 0 Refills Prov:ИРИНА GUAJARDO 07/01/21 Doxycycline (Monohydrate) (Doxycycline) 100 Mg Cap, 100 MG PO BID for 7 Days, #14 CAP 0 Refills Prov:ИРИНА GUAJARDO 07/01/21 Metformin Hydrochloride (Metformin Hcl) 850 Mg Tab, 1 TAB PO BID, #60 TAB 5 Refi lls Prov:AFIA DEAN MD 03/26/21 Ciprofloxacin Hcl (Cipro) 500 Mg Tab, 500 MG PO BID for 7 Days, #14 TAB Prov:AFIA DEAN MD 02/21/21 Ondansetron (Zofran) 4 Mg Tab, 4 MG PO BID for 7 Days, #14 MG Prov:AFIA DEAN MD 02/21/21 Reported Medications Metformin Hydrochloride (Metformin Hcl) 850 Mg Tab, 850 MG PO BID for 30 Days, MG 06/15/19 Hctz (Hydrochlorothiazide) 25 Mg Tab, 25 MG PO DAILY, TAB 06/15/19 Paroxetine (PAXIL TABLET) 20 Mg Tb, 40 MG PO DAILY for depression for 30 Days 06/15/19 Information Source: Patient Mode of Arrival: Ambulatory Severity: Moderate Timing: Hours Duration: Since onset Prehospital treatment: None Past Medical History PAST MEDICAL HISTORY: Anxiety, Arthritis, Depression, DM, HTN Past Medical History (Other): sciatica Surgical History: Appendectomy, BTL, Cholecystectomy, Hysterectomy, Tonsillectomy TALENT ANALYST History: No Pertinent TALENT ANALYST History Family History Family History: Unknown Social History Smoker: Non-Smoker, Quit Greater Than 1 Year Alcohol: Denies ETOH Use Drugs: Denies Drug Use Lives In: Home Constitutional: denies: chills, diaphoresis, fatigue, fever, malaise, sweats, weakness, others EENTM: denies: blurred vision, double vision, ear bleeding, ear discharge, ear drainage, ear pain, ear ringing, eye pain, eye redness, hearing loss, mouth pain, mouth swelling, nasal discharge, nose bleeding, nose congestion, nose pain, photophobia, tearing, throat pain, throat swelling, voice changes, others Respiratory: denies: cough, hemoptysis, orthopnea, SOB at rest, shortness of breath, SOB with excertion, stridor, wheezing, others Cardiovascular: denies: chest pain, dizzy spells, diaphoresis, Dyspnea on exertion, edema, irregular heart beat, left arm pain, lightheadedness, palpitations, PND, syncope, others Gastrointestinal: denies: abdomen distended, abdominal pain, blood streaked bowels, constipated, diarrhea, dysphagia, difficulty swallowing, hematemesis, melena, nausea, poor appetite, poor fluid intake, rectal bleeding, rectal pain, vomiting, others Genitourinary: denies: abnormal vagina bleeding, burning, dyspareunia, dysuria, flank pain, frequency, hematuria, incontinence, pain, , vagina discharge, urgency, others Neurological: denies: dizziness, fainting, headache, left sided numbness, left sided weakness, numbness, paresthesia, pre-existing deficit, right sided numbness, right sided weakness, seizure, speech problems, tingling, tremors, weakness, others Musculoskeletal: reports: back pain, joint pain (bilateral hips ); denies: gout, joint swelling, muscle pain, muscle stiffness, neck pain, others Integumetry: denies: bruises, change in color, change in hair/nails, dryness, laceration, lesions, lumps, rash, wounds, others Allergic/Immunocompromised: denies: Difficulty Healing, Frequent Infections, Hives, Itching, others Hematologic/Lymphatic: denies: anemia, blood clots, easy bleeding, easy bruising, swollen glands, others Endocrine: denies: excessive hunger, excessive sweating, excessive thirst, excessive urination, flushing, intolerance to cold, intolerance to heat, unexpl ained weight gain, unexplained weight loss, others Psychiatric: denies: anxiety, bipolar disorder, depression, hopeless, panic disorder, schizophrenia, sleepless, suicidal, others All Other Systems: Reviewed and Negative Physical Exam General Appearance: Moderate Distress HEENT: Normal ENT Inspection, Pharynx Normal, TMs Normal Neck: Full Range of Motion, Non-Tender, Normal, Normal Inspection Respiratory: Chest Non-Tender, Lungs Clear, No Accessory Muscle Use, No Respiratory Distress, Normal Breath Sounds Cardiovascular: No Edema, No JVD, No Murmur, No Gallop, Normal Peripheral Pulses, Regular Rate/Rhythm Breast Exam: Deferred Gastrointestinal: No Organomegaly, Non Tender, No Pulsatile Mass, Normal Bowel Sounds, Soft Genitalia: Deferred Pelvic: Deferred Rectal: Deferred Extremities: No calf tenderness, Normal capillary refill, Normal inspection, Normal range of motion, Non-tender, No pedal edema Musculoskeletal : Apperance: Normal Neurologic: Alert, 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 Was a procedure done?: No Differential Dx Considerations may include: DDD, sciatic, musculoskeletal pain, dislocation, sprain, fracture X-Ray, Labs, Meds, VS Vital Signs Date Time Temp Pulse Resp B/P (MAP) Pulse Ox O2 Delivery O2 Flow Rate FiO2 12/23/23 07:15 82 20 98 Room Air* 0 21 12/23/23 07:15 97.8 82 20 125/78 (94) 98 97.8 12/23/23 07:15 97.8 82 20 125/78 (94) 98 Current Medications Medications (Trade) Dose Ordered Sig/Shalonda Route Start Time Stop Time Status Last Admin Acetaminophen/ Hydrocodone Bitart ([place] 10/325MG Tab) 1 tab ONCE ONCE PO 12/23/23 07:30 12/23/23 07:31 DC 12/23/23 07:30 Ketorolac Tromethamine (Toradol Injection) 60 mg ONCE ONCE IM 12/23/23 08:30 12/23/23 08:31 DC 12/23/23 08:23 [place] [id number] Ph: [phone] DIAGNOSTIC IMAGING Diagnostic Imaging Report : [id number] Signed PATIENT: KARIN LITTLE ACCT: [id number] UNIT: [id number] : 1965 LOC: ER ROOM / BED: / AGE / SEX: 58 / F ADM STATUS: REG ER SERVICE [id number] ORDERING PHYSICIAN: LG WYATT MD PROCEDURE(s): PL2CT - PELVIS WO CONTRAST REASON: pain ORDER NUMBER(s): [id number], ACCESSION NUMBER(s): [id number] Procedure: CT PELVIS WO CONTRAST 12/23/2023 07:41 AM Indication: Bilateral hip pain. Comparison Study: None. Technique: Axial images were obtained and reformatted in coronal and sagittal planes. All CT scans at this medical facility are performed using dose modulation techniques as appropriate to a performed exam including the following: Automated exposure control was utilized; adjustment of the MA and/or KV according to patient size; and use of iterative reconstruction technique. CT Dose: CTDI volume is 21.37 mGy. Dose-length product is 748.87 mGy*cm FINDINGS: Bones: No acute fracture or dislocation. Joint spaces are maintained. Moderate bilateral acetabular osteophytosis noted. No evidence of femoral head AVN bilaterally no joint effusion noted. The sacroiliac joints are maintained with mild degenerative changes noted. Symphysis pubis is intact with mild changes of osteitis pubis noted Soft tissues: Superficial varicosities a dilated/tortuous right greater saphenous vein. Atherosclerotic calcification of the aortoiliac and femoral arteries noted. Surgical clips along the bilateral pelvic sidewalls. IMPRESSION: 1. No acute osseous abnormality of the pelvis. 2. Mild bilateral hip joint osteoarthritis. 3. Mild osteitis pubis. 4. Mild degenerative changes of the SI joints. 5. Peripheral arterial disease. 6. Dilated and tortuous right greater saphenous vein. ATED BY: BARB CLIFFORD MD DICTATED DATE/TIME: 12/23/23814 SIGNED BY: BARB CLIFFORD MD SIGNED DATE/TIME: 12/23/23814 CC: Patient alert. Complaining of hip pain. Vitals stable. Answering all questions. Reviewed her previous visit. Has been having this hip pain for many months. CT of the pelvis does show degeneration with osteoarthritis. Was given prescription of prednisone [place]. Explained to the patient. Was told to follow up with her primary care physician. Was told to come back if there is any problem. Time of 1ST Reevaluation: 08:00 Reevaluation 1ST: Unchanged Patient Education/Counseling: Diagnosis, Treatment Family Education/Counseling: No Family Present Departure 1 Departure Time of Disposition: 09:37 Impression: Primary Impression: Osteoarthritis Qualified Codes: M19.90 - Unspecified osteoarthritis, unspecified site Disposition: 01 HOME / SELF CARE / HOMELESS Condition: Good e-Prescriptions Prednisone (Prednisone) 10 Mg Tab 10 MG PO DAILY for 5 Days, #5 MG Prov: LG WYATT MD 12/23/23 Discharged With: Self Critical Care Note Critical Care Time?: No Stability Stability form required: No Heart Score Heart Score: Heart Score Response (Comments) Value History N/A 0 EKG N/A 0 Age N/A 0 Risk Factors N/A 0 Troponin N/A 0 Total 0 I personally scribed for LG WYATT MD ([email or web address]) on 12/23/23 at 08:10. Electronically submitted by Carlos Griffith ([email or web address]). I personally scribed for LG WYATT MD ([email or web address]) on 12/23/23 at 08:24. Electronically submitted by Carlos Griffith ([email or web address]). LG WYATT MD Dec 23, 2023 08:10
--- NOTE | 2023-12-23 08:17 | DVH ---
Procedure: CT PELVIS WO CONTRAST 12/23/2023 07:41 AM Indication: Bilateral hip pain. Comparison Study: None. Technique: Axial images were obtained and reformatted in coronal and sagittal planes. All CT scans at this medical facility are performed using dose modulation techniques as appropriate t o a performed exam including the following: Automated exposure control was utilized; adjustment of th e MA and/or KV according to patient size; and use of iterative reconstruction technique. CT Dose: CTDI volume is 21.37 mGy. Dose-length product is 748.87 mGy*cm FINDINGS: Bones: No acute fracture or dislocation. Joint spaces are maintained. Moderate bilateral acetabular o steophytosis noted. No evidence of femoral head AVN bilaterally no joint effusion noted. The sacroil iac joints are maintained with mild degenerative changes noted. Symphysis pubis is intact with mild changes of osteitis pubis noted Soft tissues: Superficial varicosities a dilated/tortuous right greater saphenous vein. Atherosclerot ic calcification of the aortoiliac and femoral arteries noted. Surgical clips along the bilateral pe lvic sidewalls. IMPRESSION: 1. No acute osseous abnormality of the pelvis. 2. Mild bilateral hip joint osteoarthritis. 3. Mild osteitis pubis. 4. Mild degenerative changes of the SI joints. 5. Peripheral arterial disease. 6. Dilated and tortuous right greater saphenous vein.
[2023-12-23] MEDS: KETOROLAC TROMETH 60MG/2ML VIAL IM ONE (08:23)
[2023-12-23] MEDS ORDERED: HYDR-4902 PO (09:39)
[2023-12-23] MEDS ORDERED: PRED10TA PO (09:39)
== END 2023-12-23 09:50 | disposition home or self-care (01) ==
LOC: ER 07:13
DX: M19.90 Unspecified osteoarthritis, unspecified site (principal); I10 Essential (primary) hypertension; E11.9 Type 2 diabetes mellitus without complications; F32.A Depression, unspecified; F41.9 Anxiety disorder, unspecified; Z79.84 Long term (current) use of oral hypoglycemic drugs; Z79.899 Other long term (current) drug therapy; Z90.49 Acquired absence of other specified parts of digestive tract; Z90.710 Acquired absence of both cervix and uterus
CPT/HCPCS: 72192; 96372; 99285; J1885

== ENCOUNTER → 2023-12-30 | Outpatient (CLI) | payer BC, OTHER ==
[~2023-12-30] MED LIST changes: +PRED10TA PO
[2023-12-30 10:35] LABS: CRP High Sensitivity 0.05 mg/dL (<1.0)
[2023-12-30 10:46] LABS: Erythrocyte Sedimentation Rate 6 mm/hr (0-20)
[2023-12-30 11:45] LABS: Uric Acid 3.9 mg/dL (3.1-7.8)
[2023-12-31 08:06] LABS: Complement C3 141 mg/dL (82-167); Rheumatoid Arthritis Factor <10.0 IU/mL (<14.0); Thyroid Peroxidase (TPO) Ab <9 IU/mL (0-34)
[2023-12-31 12:07] LABS: Anti-Nuclear Antibody Direct Negative (Negative); Anti-dsDNA Antibody <1 IU/mL (0-9); Antiscleroderma-70 Antibody 0.2 AI (0.0-0.9); RNP Antibody <0.2 AI (0.0-0.9); Sjogren's Anti-SS-A Antibody <0.2 AI (0.0-0.9); Sjogren's Anti-SS-B Antibody <0.2 AI (0.0-0.9); Smith Antibody <0.2 AI (0.0-0.9)
== END | disposition home or self-care (01) ==
LOC: LAB 09:37
PROVIDERS: ATTEND Internal Medicine
DX: I10 Essential (primary) hypertension (principal); E11.9 Type 2 diabetes mellitus without complications; M16.0 Bilateral primary osteoarthritis of hip
CPT/HCPCS: 36415; 84550; 85652; 86141; 86160; 86225; 86235; 86376; 86431

== ENCOUNTER → 2024-05-10 | Outpatient (CLI) | payer BC, OTHER ==
[~2024-05-10] MED LIST changes: +BUPIVACAINE HCL 0.25% P/F 10 ML VIAL ONE; +IOHEXOL 300 MG/ML 100ML BOTTLE IJ ONE; +LIDOCAINE 2%HCL (LOCAL ANESTH.) INJ 10ml MDV ONE; +NITR-87 PO; +methylPREDNISolone ACETATE 80 MG/ML VL ONE
--- NOTE | 2024-05-10 15:15 | DVH ---
XY R HIP 1V XRAY HISTORY: PRIMARY OA BL HIPS COMPARISON: None PROCEDURE: The risks and benefits of the procedure including infection, hemorrhage and technical failure were di scussed with the patient, who agreed to proceed. The patient was positioned supine on the fluoroscopy table. Time out was performed. The right and lef t hips were localized using fluoroscopy, and the location on the skin for needle insertion was marked . The region was prepped and draped using routine sterile technique. Approximately 2 cc of lidocaine was injected for local anesthesia. A 21 gauge spinal needle was inserted, and intra-articular locatio n was confirmed by injection of less than 1 cc of iodinated contrast. 1 cc of methylprednisolone (80 mg/cc) and 4 cc of Bupivacaine (0.25%) and 5 cc of 2% Lidocaine was then injected without complicatio n. Fluoroscopy time was 1 minute. The patient was informed of the temporary precautions to take following the procedure as well as of t he potential signs and symptoms which may indicate the need to contact physician, and expressed unde rstanding of this discussion. IMPRESSION: Successful steroid and anesthetic injection of the right and left hips.
--- NOTE | 2024-05-10 15:15 | DVH ---
XY L HIP 1V XRAY, HISTORY: PRIMARY OA BL HIPS COMPARISON: None PROCEDURE: The risks and benefits of the procedure including infection, hemorrhage and technical failure were di scussed with the patient, who agreed to proceed. The patient was positioned supine on the fluoroscopy table. Time out was performed. The right and lef t hips were localized using fluoroscopy, and the location on the skin for needle insertion was marked . The region was prepped and draped using routine sterile technique. Approximately 2 cc of lidocaine was injected for local anesthesia. A 21 gauge spinal needle was inserted, and intra-articular locatio n was confirmed by injection of less than 1 cc of iodinated contrast. 1 cc of methylprednisolone (80 mg/cc) and 4 cc of Bupivacaine (0.25%) and 5 cc of 2% Lidocaine was then injected without complicatio n. Fluoroscopy time was 1 minute. The patient was informed of the temporary precautions to take following the procedure as well as of t he potential signs and symptoms which may indicate the need to contact physician, and expressed under standing of this discussion. IMPRESSION: Successful steroid and anesthetic injection of the right and left hips.
--- NOTE | 2024-05-12 08:22 | DVH ---
XY L HIP 1V XRAY, HISTORY: PRIMARY OA BL HIPS COMPARISON: None PROCEDURE: The risks and benefits of the procedure including infection, hemorrhage and technical failure were discussed with the patient, who agreed to proceed. The patient was positioned supine on the fluoroscopy table. Time out was performed. The right and left hips were localized using fluoroscopy, and the location on the skin for needle insertion was marked. The region was prepped and draped using routine sterile technique. Approximately 2 cc of lidocaine was injected for local anesthesia. A 21 gauge spinal needle was inserted, and intra- articular location was confirmed by injection of less than 1 cc of iodinated contrast. 1 cc of methylprednisolone (80 mg/cc) and 4 cc of Bupivacaine (0.25%) and 5 cc of 2% Lidocaine was then injected without complication. Fluoroscopy time was 1 minute. The patient was informed of the temporary precautions to take following the procedure as well as of the potential signs and symptoms which may indicate the need to contact physician, and expressed understanding of this discussion. IMPRESSION: Successful steroid and anesthetic injection of the right and left hips. N BAKER
== END | disposition home or self-care (01) ==
LOC: EDSTATUS 13:33 → XYW 13:47
PROVIDERS: ATTEND Orthopaedic Surgery Adult Reconstructive Orthopaedic Surgery
DX: M16.0 Bilateral primary osteoarthritis of hip (principal); F41.8 Other specified anxiety disorders; Z79.899 Other long term (current) drug therapy; Z86.718 Personal history of other venous thrombosis and embolism; Z98.51 Tubal ligation status; Z90.710 Acquired absence of both cervix and uterus; Z90.722 Acquired absence of ovaries, bilateral; Z90.89 Acquired absence of other organs; Z90.79 Acquired absence of other genital organ(s); Z82.49 Family history of ischemic heart disease and other diseases of the circulatory system; Z81.0 Family history of intellectual disabilities
CPT/HCPCS: 20610; 77002; J1010; J2003; J3490; Q9967; 73501

== ENCOUNTER 2024-06-23 15:14 | Emergency (ER) | payer BC, OTHER ==
[~2024-06-23] VITALS: Ht 157.5 cm; Wt 76.0 kg
[~2024-06-23 15:14] MED LIST changes: +ACYC1TAB3 PO; -BUPIVACAINE HCL 0.25% P/F 10 ML VIAL ONE; -IOHEXOL 300 MG/ML 100ML BOTTLE IJ ONE; -LIDOCAINE 2%HCL (LOCAL ANESTH.) INJ 10ml MDV ONE; -methylPREDNISolone ACETATE 80 MG/ML VL ONE
[2024-06-23] MEDS: HYDROmorphone HCL 2 MG/ML VL/or syr IM ONE (15:57)
[2024-06-23] MEDS: ONDANSETRON HCL 4 MG/2 ML VIAL IM ONE (15:57)
--- NOTE | 2024-06-23 15:58 | DVH ---
EXAM: CT Head Without Intravenous Contrast CLINICAL INDICATION: [facility] TECHNIQUE: Axial computed tomography images of the head/brain without intravenous contrast. This CT exam was performed using one or more of the following dose reduction techniques: automated exposure control, adjustment of the mA and/or kV according to patient size, and/or use of iterative reconstru ction technique. CONTRAST: COMPARISON: CT HEAD WITHOUT CONTRAST on DOS: 04/26/23 FINDINGS: BRAIN AND EXTRA-AXIAL SPACES: No acute intracranial hemorrhage, midline shift or mass effect. If sy mptoms persist, further evaluation with MRI is recommended. No significant white matter disease. BONES/JOINTS: Unremarkable. No acute fracture. SOFT TISSUES: Unremarkable. SINUSES: Unremarkable as visualized. No acute sinusitis. MASTOID AIR CELLS: Unremarkable as visualized. No mastoid effusion. OTHER FINDINGS: . . IMPRESSION: No acute intracranial hemorrhage, midline shift or mass effect. If symptoms persist, further evaluat ion with MRI is recommended.
--- NOTE | 2024-06-23 16:04 | ED.PDOC ---
HPI (NEURO) HPI Comments 58 y/o F, with PMHx of DM, HTN, depression, anxiety, and arthritis presents to the ED for CC of headache. Patient states, she has been experiencing a frontal headache with associated symptoms of dizziness onset, last night (06/22/24). Patient reports, increased stressed over that last hours d/t recent discussions. Patient reports, taking ibuprofen, Excedrin, and Liscomb with no relief of symptoms. Patient denies blurred vision, nausea, or vomiting. No other symptoms or modifying factors present at this time. Chief Complaint: Headache Time Seen by MD: 15:25 Primary Care Provider: TANISHA Reviewed Notes: Nurses Notes, Medications, Allergies Information Source: Patient Mode of Arrival: Ambulatory Severity: Moderate Dizziness/Weakness Severity: Does not affect activitie Headache Severity: Moderate Timing: Hours Duration: Since onset Prehospital treatment: None Headache Quality: Throbbing Headache Location: Frontal Onset: At rest Circumstances: Recent stress Symptoms: None Before: Normal During: Awake After: Normal Mentation History of: None Modifying factors: Nothing Associated Signs and Symptoms: Headache Past Medical History PAST MEDICAL HISTORY: Anxiety, Arthritis, Depression, DM, HTN Surgical History: Appendectomy, BTL, Cholecystectomy, Hysterectomy, Tonsillectomy 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 LOADER History Family History Family History: Unknown Social History Smoker: Non-Smoker, Quit Greater Than 1 Year Alcohol: Denies ETOH Use Drugs: Denies Drug Use Lives In: Home Constitutional: denies: chills, diaphoresis, fatigue, fever, malaise, sweats, weakness, others EENTM: denies: blurred vision, double vision, ear bleeding, ear discharge, ear drainage, ear pain, ear ringing, eye pain, eye redness, hearing loss, mouth pain, mouth swelling, nasal discharge, nose bleeding, nose congestion, nose pain, photophobia, tearing, throat pain, throat swelling, voice changes, others Respiratory: denies: cough, hemoptysis, orthopnea, SOB at rest, shortness of breath, SOB with excertion, stridor, wheezing, others Cardiovascular: denies: chest pain, dizzy spells, diaphoresis, Dyspnea on exertion, edema, irregular heart beat, left arm pain, lightheadedness, palpitations, PND, syncope, others Gastrointestinal: denies: abdomen distended, abdominal pain, blood streaked bowels, constipated, diarrhea, dysphagia, difficulty swallowing, hematemesis, melena, nausea, poor appetite, poor fluid intake, rectal bleeding, rectal pain, vomiting, others Genitourinary: denies: abnormal vagina bleeding, burning, dyspareunia, dysuria, flank pain, frequency, hematuria, incontinence, pain, , vagina discharge, urgency, others Neurological: reports: dizziness, headache; denies: fainting, left sided numbness, left sided weakness, numbness, paresthesia, pre-existing deficit, right sided numbness, right sided weakness, seizure, speech problems, tingling, tremors, weakness, others Musculoskeletal: denies: back pain, gout, joint pain, joint swelling, muscle pain, muscle stiffness, neck pain, others Integumetry: denies: bruises, change in color, change in hair/nails, dryness, laceration, lesions, lumps, rash, wounds, others Allergic/Immunocompromised: denies: Difficulty Healing, Frequent Infections, Hives, Itching, others Hematologic/Lymphatic: denies: anemia, blood clots, easy bleeding, easy bruising, swollen glands, others Endocrine: denies: excessive hunger, excessive sweating, excessive thirst, excessive urination, flushing, intolerance to cold, intolerance to heat, unexplained weight gain, unexplained weight loss, others Psychiatric: denies: anxiety, bipolar disorder, depression, hopeless, panic disorder, schizophrenia, sleepless, suicidal, others All Other Systems: Reviewed and Negative Physical Exam General Appearance: Mild Distress HEENT: Normal ENT Inspection, Pharynx Normal, TMs Normal Neck: Full Range of Motion, Non-Tender, Normal, Normal Inspection Respiratory: Chest Non-Tender, Lungs Clear, No Accessory Muscle Use, No Respiratory Distress, Normal Breath Sounds Cardiovascular: No Edema, No JVD, No Murmur, No Gallop, Normal Peripheral Pulses, Regular Rate/Rhythm Breast Exam: Deferred Gastrointestinal: No Organomegaly, Non Tender, No Pulsatile Mass, Normal Bowel Sounds, Soft Genitalia: Deferred Pelvic: Deferred Rectal: Deferred Extremities: No calf tenderness, Normal capillary refill, Normal inspection, Normal range of motion, Non-tender, No pedal edema Musculoskeletal : Apperance: Normal Neurologic: Alert, 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 Was a procedure done?: No Differential Diagnosis (SZ) Seizure: N/A Headache: Cluster, Migraine, Sinusitis X-Ray, Labs, Meds, VS Vital Signs Date Time Temp Pulse Resp B/P (MAP) Pulse Ox O2 Delivery O2 Flow Rate FiO2 06/23/24 17:00 62 16 116/64 06/23/24 17:00 98.2 62 16 116/64 (81) 95 98.2 06/23/24 16:07 70 06/23/24 15:57 84 16 120/72 06/23/24 15:22 70 06/23/24 15:14 98.2 84 16 120/72 (88) 96 98.2 Current Medications Medications (Trade) Dose Ordered Sig/Shalonda Route Start Time Stop Time Status Last Admin Hydromorphone HCl (Dilaudid Injection) 1 mg ONCE ONCE IM 06/23/24 15:45 06/23/24 15:46 DC 06/23/24 15:57 Ondansetron HCl (Zofran) 4 mg ONCE ONCE IM 06/23/24 15:45 06/23/24 15:46 DC 06/23/24 15:57 Prochlorperazine Edisylate (Compazine Inj) 5 mg ONCE ONCE IV 06/23/24 16:45 06/23/24 16:46 DC 06/23/24 16:49 Sodium Chloride 1,000 ml @ 1,000 mls/hr Q1H ONCE IV 06/23/24 16:45 06/23/24 17:44 06/23/24 16:[address]: IMPRESSION: No acute intracranial hemorrhage, midline shift or mass effect. If symptoms persist, further evaluation with MRI is recommended. THE PATIENT IS BEING DISCHARGED THE PATIENT WAS GIVEN DILAUDID IM THE PATIENT WAS GIVEN ZOFRAN IM THE PATIENT WAS THEN GIVEN A 1 L BOLUS OF NORMAL SALINE AND COMPAZINE 10 MG IV PUSH AT THIS TIME THE PATIENT STATES THAT THE PATIENT'S FEELS BETTER THE PATIENT IS BEING DISCHARGED THE PATIENT WILL RETURN TO THE EMERGENCY DEPARTMENT'S THE CONDITION WORSENS. Images Reviewed?: Images reviewed and evaluated by me Time of 1ST Reevaluation: 15:55 Reevaluation 1ST: Unchanged Patient Education/Counseling: Diagnosis, Treatment, Prognosis, Need For Follow Up Family Education/Counseling: No Family Present Departure 1 Departure Time of Disposition: 17:38 Impression: Primary Impression: Migraine headache Qualified Codes: G43.909 - Migraine, unspecified, not intractable, without status migrainosus Disposition: 01 HOME / SELF CARE / HOMELESS Condition: Fair Discharged With: Self, Spouse Critical Care Note Critical Care Time?: No Stability Stability form required: No Heart Score Heart Score: Heart Score Response (Comments) Value History N/A 0 EKG N/A 0 Age N/A 0 Risk Factors N/A 0 Troponin N/A 0 Total 0 I personally scribed for JAYLON FRAGA MD ([email or web address]) on 06/23/24 at 16:04. Electronically submitted by Anna Martinez ([email or web address]). I personally scribed for JAYLON FRAGA MD ([email or web address]) on 06/23/24 at 16:07. Electronically submitted by Anna Martinez ([email or web address]). JAYLON FRAGA MD June 23, 2024 16:04
--- NOTE | 2024-06-23 16:09 | ECG ---
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
[2024-06-23] MEDS: PROCHLORPERAZINE EDISYLATE 5 MG/ML 2ML VIAL IV ONE (16:49)
[2024-06-23] MEDS: SODIUM CHLORIDE 0.9% 1,000 ML IV ONE (16:49)
[2024-06-23] MEDS: PROCHLORPERAZINE EDISYLATE 5 MG/ML 2ML VIAL ONE (16:49)
[2024-06-23 17:00] VITALS: BP 116/64; PULSE 62; RESP 16; TEMP 98.2; O2SAT 95
== END 2024-06-23 18:11 | disposition home or self-care (01) ==
LOC: EEVIPCON 15:25 → ER 15:25
DX: G43.909 Migraine, unspecified, not intractable, without status migrainosus (principal); E11.9 Type 2 diabetes mellitus without complications; I10 Essential (primary) hypertension; M19.90 Unspecified osteoarthritis, unspecified site; F32.A Depression, unspecified; Z90.49 Acquired absence of other specified parts of digestive tract; Z90.710 Acquired absence of both cervix and uterus; Z90.89 Acquired absence of other organs; Z98.51 Tubal ligation status; Z98.890 Other specified postprocedural states; Z87.891 Personal history of nicotine dependence
CPT/HCPCS: 70450; 82947; 93005; 96361; 96372; 96374; 99285; J0780; J1171; J2405; J7030

== ENCOUNTER 2024-08-09 13:00 | Outpatient (CLI) | payer BC, OTHER ==
[2024-08-09] MEDS ORDERED: LIDOCAINE 2%HCL (LOCAL ANESTH.) INJ 10ml MDV ONE (13:15)
[2024-08-09] MEDS ORDERED: IOHEXOL 300 MG/ML 100ML BOTTLE IJ ONE (13:15)
[2024-08-09] MEDS ORDERED: methylPREDNISolone ACETATE 80 MG/ML VL ONE ×2 (13:21→13:22)
[2024-08-09] MEDS ORDERED: BUPIVACAINE HCL 0.25% P/F 10 ML VIAL ONE ×2 (13:21→13:22)
--- NOTE | 2024-08-09 15:35 | DVH ---
EXAM: XY L HIP 1V XRAY, XY R HIP 1V XRAY CLINICAL INDICATION: PAIN TECHNIQUE: XY L HIP 1V XRAY, XY R HIP 1V XRAY Comparison: XY L HIP 1V XRAY on DOS: 05/10/24, XY R HIP 1V XRAY on DOS: 05/10/24 FINDINGS/IMPRESSION: There is no evidence of acute fracture or dislocation. Moderate bilateral hip osteoarthritis. The alignment is anatomical. There is no radiopaque foreign body.
--- NOTE | 2024-08-09 15:45 | DVH ---
XY FLUOROGUIDANCE FOR NEEDLE PLAC HISTORY: PAIN COMPARISON: XY FLUOROGUIDANCE FOR NEEDLE PLAC on DOS: 05/10/24 PROCEDURE: The risks and benefits of the procedure including infection, hemorrhage and technical failure were di scussed with the patient, who agreed to proceed. The patient was positioned supine on the fluoroscopy table. Time out was performed. The right and lef t was localized using fluoroscopy, and the location on the skin for needle insertion was marked. The region was prepped and draped using routine sterile technique. Approximately 2 cc of lidocaine was in jected for local anesthesia. A 22 gauge spinal needle was inserted, and intra-articular location was confirmed by injection of less than 1 cc of iodinated contrast. 1 cc of methylprednisolone (80 mg/cc) and 4 cc of Bupivacaine (0.25%) and 5 cc of 2% Lidocaine was then injected without complication. Thi s was done for each hip, the right and the left hip. Fluoroscopy time was 1.2 minutes. The patient was informed of the temporary precautions to take following the procedure as well as of t he potential signs and symptoms which may indicate the need to contact physician, and expressed unde rstanding of this discussion. IMPRESSION: Bilateral steroid and anesthetic injection of the right and left hips.
== END 2024-08-09 17:00 | disposition home or self-care (01) ==
LOC: XYW 13:00
PROVIDERS: ATTEND Internal Medicine
DX: M16.0 Bilateral primary osteoarthritis of hip (principal); F41.8 Other specified anxiety disorders; F31.89 Other bipolar disorder; Z79.01 Long term (current) use of anticoagulants; Z79.899 Other long term (current) drug therapy; Z86.718 Personal history of other venous thrombosis and embolism; Z90.710 Acquired absence of both cervix and uterus; Z98.51 Tubal ligation status; Z98.890 Other specified postprocedural states; Z90.79 Acquired absence of other genital organ(s); Z82.49 Family history of ischemic heart disease and other diseases of the circulatory system; Z81.0 Family history of intellectual disabilities
CPT/HCPCS: 20610; 73501; 77002; J1010; J2003; J3490; Q9967

== ENCOUNTER 2024-09-02 07:44 | Outpatient (CLI) | payer BC, OTHER ==
[2024-09-02 08:43] LABS: Hematocrit 41.4 % (36.0-46.0); Hemoglobin 14.9 g/dL (12.2-16.2); Mean Corpuscular Hemoglobin 29.8 pg (28.0-32.0); Mean Corpuscular Volume 83.1 fL (80.0-100.0); Nucleated Red Blood Cells % 0.0 %
[2024-09-02 09:05] LABS: Alanine Aminotransferase 20 U/L (7-40); Alkaline Phosphatase 79 U/L (46-116); Anion Gap 9 (5-15); BUN/Creatinine Ratio 17.6 (10.0-20.0); Blood Urea Nitrogen 12 mg/dL (9-23); Calcium 10.0 mg/dL (8.7-10.4); Chloride 99 mmol/L (98-107); Sodium 139 mmol/L (136-145); Total Protein 7.2 g/dL (5.7-8.2); Triglycerides 84 mg/dL (< 150)
[2024-09-02 09:06] LABS: Albumin 4.9 g/dL (3.2-4.8); Bilirubin, Total 0.4 mg/dL (0.2-1.0); Carbon Dioxide 31 mmol/L (20-31); Cholesterol 177 mg/dL (< 200); Glucose 128 mg/dL (74-106); HDL Cholesterol 40 mg/dL (40-59); Potassium 3.0 mmol/L (3.5-5.1)
[2024-09-02 09:09] LABS: Urine Protein, UAD TRACE (Negative)
[2024-09-02 10:20] LABS: Microalb/Creat Ratio, Urine 8.0
== END 2024-09-02 17:00 | disposition home or self-care (01) ==
LOC: LAB 07:44
PROVIDERS: ATTEND Internal Medicine
DX: I10 Essential (primary) hypertension (principal); E11.9 Type 2 diabetes mellitus without complications; Z00.00 Encounter for general adult medical examination without abnormal findings
CPT/HCPCS: 36415; 80053; 80061; 81001; 82043; 82306; 82570; 82607; 83036; 85025

== ENCOUNTER 2024-09-29 10:18 | Outpatient (CLI) | payer BC, OTHER ==
[2024-09-29 11:16] LABS: Chloride 103 mmol/L (98-107); Potassium 3.8 mmol/L (3.5-5.1); Sodium 141 mmol/L (136-145)
[2024-09-29 11:17] LABS: Anion Gap 8 (5-15); Calcium 9.3 mg/dL (8.7-10.4); Carbon Dioxide 30 mmol/L (20-31)
[2024-09-29 11:22] LABS: BUN/Creatinine Ratio 15.0 (10.0-20.0); Glucose 73 mg/dL (74-106)
[2024-09-29 11:23] LABS: Blood Urea Nitrogen 9 mg/dL (9-23)
[2024-09-29 11:24] LABS: Creatine Kinase IFCC 47 U/L (34-145)
== END 2024-09-29 17:00 | disposition home or self-care (01) ==
LOC: LAB 10:18
PROVIDERS: ATTEND Internal Medicine
DX: E11.9 Type 2 diabetes mellitus without complications (principal); E55.9 Vitamin D deficiency, unspecified
CPT/HCPCS: 36415; 80048; 82550; 85652

== ENCOUNTER 2024-11-22 06:03 | Inpatient (IN) | payer BC, OTHER ==
[2024-11-19 10:27] LABS: Urine Protein, UAD TRACE (Negative)
[2024-11-19 10:33] LABS: Hematocrit 35.4 % (36.0-46.0); Hemoglobin 12.3 g/dL (12.2-16.2); Mean Corpuscular Hemoglobin 29.1 pg (28.0-32.0); Mean Corpuscular Volume 83.8 fL (80.0-100.0); Nucleated Red Blood Cells % 0.1 %
[2024-11-19 10:47] LABS: INR 1.0 (0.9-1.15); Partial Thromboplastin Time 31.3 SEC (24.5-34.5); Prothrombin Time 10.6 sec (9.3-11.8)
[2024-11-19 10:55] LABS: Alanine Aminotransferase 22 U/L (7-40); Albumin 4.1 g/dL (3.2-4.8); Alkaline Phosphatase 65 U/L (46-116); Anion Gap 11 (5-15); BUN/Creatinine Ratio 15.8 (10.0-20.0); Blood Urea Nitrogen 9 mg/dL (9-23); Calcium 9.0 mg/dL (8.7-10.4); Carbon Dioxide 28 mmol/L (20-31); Chloride 103 mmol/L (98-107); Glucose 93 mg/dL (74-106); Sodium 142 mmol/L (136-145); Total Protein 6.3 g/dL (5.7-8.2)
[2024-11-19 10:59] LABS: Bilirubin, Total 0.3 mg/dL (0.2-1.0); Potassium 3.0 mmol/L (3.5-5.1)
[~2024-11-22] VITALS: Ht 160 cm; Wt 85.7 kg
[2024-11-22] VITALS (14 sets, daily range): BP systolic 90–113; BP diastolic 45–66; PULSE 72–87; RESP 12–18; TEMP 96.3–98; O2SAT 92–100
[~2024-11-22 06:03] MED LIST changes: -ACE3T PO; -ACET30TA15 PO; -ACYC1TAB3 PO; -ALPR1TAB PO; -ASCO500T11 PO; -AZIT500T PO; -AZITTAB PO; -BENZ100C19 PO; +CHOL200064 PO; -CHOL500035 PO; -CIPR-173 PO; -CYCL-614 PO; -CYCL-837 PO; -DOXY100C79 PO; +ESCI20TA PO; -HYDR-4902 PO; -IBUP-1456 PO; -LORA-1121 PO; -NITR-87 PO; -ONDA-144 PO; -PAR20T PO; -PRED10TA PO; -PRED20TA2 PO; -TRAM50TA2 PO; -ZINC220C10 PO
[2024-11-22] MEDS: ACETAMINOPHEN IV 1000 MG/100ML (10MG/ML) IV ONE ×2 (07:05→10:11)
[2024-11-22] MEDS: CELECOXIB 100 MG CAP PO ONE (07:05)
[2024-11-22] MEDS: PREGABALIN CAPSULE 75 MG CAP PO ONE (07:05)
[2024-11-22] MEDS ORDERED: MIDAZOLAM HCL 2MG/2ML 2ml VIAL (1mg/ml) ONE (07:19)
[2024-11-22] MEDS ORDERED: fentaNYL CITRATE 100 MCG/2 ML VL ONE ×2 (07:19→09:04)
[2024-11-22] MEDS ORDERED: NITROGLYCERIN 0.4 MG SL TAB SL PRN (07:30)
[2024-11-22] MEDS ORDERED: MORPHINE SULFATE INJ 2 MG/ml SYRG IV PRN (07:30)
[2024-11-22] MEDS ORDERED: HYDROmorphone HCL 2 MG/ML VL/or syr IV PRN ×2 (07:30→09:30)
[2024-11-22] MEDS ORDERED: ceFAZolin 1GM/50ML 50 ML IV SCH (07:30)
[2024-11-22] MEDS ORDERED: ONDANSETRON HCL 4 MG/2 ML VIAL IV PRN (07:30)
[2024-11-22] MEDS ORDERED: DEXTROSE (50%) 50ML SYRG IV PRN ×2 (07:30→14:30)
[2024-11-22] MEDS ORDERED: PROPOFOL 10 MG/ML 20 ML IV ONE ×2 (07:36→09:05)
[2024-11-22] MEDS ORDERED: LIDOCAINE 2% (LOCAL ANESTH.) PF 5ml SDV ONE (07:37)
[2024-11-22] MEDS ORDERED: ONDANSETRON HCL 4 MG/2 ML VIAL ONE ×2 (07:43→09:53)
[2024-11-22] MEDS ORDERED: METOCLOPRAMIDE HCL 5MG/ml INJ 2ml VIAL ONE (07:43)
[2024-11-22] MEDS ORDERED: SODIUM CHLORIDE LOCK 10 ML ONE (07:59)
[2024-11-22] MEDS ORDERED: PHENYLEPHRINE HCL 10 MG/ML VL ONE (08:10)
[2024-11-22] MEDS ORDERED: LIDOCAINE W/ EPINEPHRINE 1% 20ML VIAL ONE (08:17)
[2024-11-22] MEDS: VANCOMYCIN HCL 1000 MG VL ONE (08:25)
[2024-11-22] MEDS: MORPHINE SULF PF 5 MG/10 ML VIAL ONE (08:30)
[2024-11-22] MEDS: KETOROLAC TROMETH 30 MG/ML 1ML VIAL ONE (08:30)
--- NOTE | 2024-11-22 09:29 | DVHOP2 ---
Operative Report - 2 Report Details Date: 11/22/24 Preop Diagnosis: Left Hip DJD Postop Diagnosis: Same Surgeon: Massimo Downing MD Inspector Water Pollution Control: Sebastian Anesthesiologist: STELLA Anesthesia: Mac, Regional Implant: Oren Z1 and G7 Dual Mobility Consent: The patient was informed of the risks and benefits of the procedure. These include but are not limited to complications of anesthesia, postoperative infection, incomplete relief of symptoms, recurrence of symptoms, damage to blood vessels, nerves and tendons, deep venous thrombosis, pulmonary embolism and possible need for repeat surgery in the future. Estimated Blood Loss: 200 Name of Procedure Performed Left Total Hip Arthroplasty Procedure Details Procedure Details: A posterior approach was utilized. A skin incision was made posterior to the greater trochanter. Dissection was carried through subcutaneous tissue, and the fascia of the gluteus sameer was split in line with its fibers, including a p ortion of the distal iliotibial band. A Charnley self-retaining retractor was placed, with care taken to protect the sciatic nerve. The hip was internally rotated, and the short external rotators were detached from the greater trochanter. Capsulotomy was performed, and the hip was dislocated posteriorly. Traci retractors were used to protect soft tissues. The femoral neck osteotomy was performed according to preoperative templating, and the femoral head was removed and measured. Attention was then directed to the acetabulum. Acetabular retractors were placed for exposure. The labrum and pulvinar were excised. Sequential reaming was performed to the appropriate size. A trial acetabular component was inserted and found to have satisfactory fit. The definitive acetabular component was implanted at approximately 45 abduction and 20 anteversion, with fixation augmented by 2 screw(s). The liner was seated and tested for stability. The femur was then prepared. A femoral elevator was used for exposure, and the piriformis was excised. A Charnley awl, box osteotome, and lateralizing reamer were used to access the proximal femur. Sequential reaming and broaching were performed, and a trial broach was selected. The calcar was planed. Multiple trial reductions were performed to assess stability, range of motion, and leg length. The final femoral component was implanted. The trunnion was cleaned and dried, and the femoral head was impacted. The hip was reduced and stability confirmed. The wound was irrigated with pulsatile lavage and a dilute betadine solution. Local anesthetic cocktail was injected into the soft tissues. The capsule and short external rotators were repaired with #5 FiberWire. The fascia was closed with #1 absorbable suture, and the subcutaneous tissue with 2-0 absorbable suture. Skin was closed with fran. A sterile dressing was applied, and an abduction pillow was placed. The patient was transferred to the recovery room in stable condition. Instrument Count: Correct Surgeon Presence: I was present for the entire procedure. Condition Good Disposition Home MASSIMO DOWNING DO Nov 22, 2024 09:29
[2024-11-22] MEDS ORDERED: diphenhydrAMINE HCL 50 MG/1 ML VL IV PRN (09:30)
[2024-11-22] MEDS ORDERED: NALOXONE HCL 0.4 MG/ML VIAL IV PRN (09:30)
[2024-11-22] MEDS ORDERED: HYDROmorphone HCL 2 MG/ML VL/or syr ONE (09:52)
--- NOTE | 2024-11-22 10:00 | DVH ---
CLINICAL INDICATION: sp Left SHUN TECHNIQUE: 1 radiographic views of the pelvis were obtained. Comparison: XY R HIP 1V XRAY on DOS: 08/09/24, XY L HIP 1V XRAY on DOS: 08/09/24, XY L HIP 1V XRAY on D OS: 05/10/24, XY R HIP 1V XRAY on DOS: 05/10/24, MRI MRI L HIP WO CONTRAST on DOS: 05/05/24 FINDINGS/IMPRESSION: There is no evidence of acute fracture or dislocation. Status post total arthroplasty.
[2024-11-22] MEDS: BUPIVACAINE 0.25% INJ 50ML VIAL ONE ×2 (10:01→10:03)
[2024-11-22] MEDS: ceFAZolin 2 GM/D5W50ml 50 ML IV ONE (10:02)
[2024-11-22] MEDS: TRANEXAMIC ACID 20 ML ONE (10:02)
[2024-11-22] MEDS: CEFEPIME 1GM/50ML 50 ML IV ONE (10:03)
[2024-11-22] MEDS: LACTATED RINGER'S 1,000 ML IV SCH (10:41)
[2024-11-22] MEDS: DOCUSATE SOD 100 MG CAP PO SCH (10:43)
[2024-11-22] MEDS: hydroCHLOROthiazide 25 MG TAB PO SCH (10:43)
[2024-11-22] MEDS: InsuLIN REG 1unit/0.01ml Soln (100units/ml) SC SCH ×2 (11:13→17:00)
[2024-11-22] MEDS: ACCU-CHEK COMFORT CURVE STRIP VI SCH ×2 (11:15→17:00)
--- NOTE | 2024-11-22 14:28 | DVHHP2 ---
Review of Systems Allergies: Coded Allergies: NO KNOWN ALLERGIES (Unverified , 01/16/10) Medications Current Medications Medications Dose Ordered Sig/Shalonda Route Start Time Stop Time Status Last Admin Dose Admin Hydrochlorothiazide 25 mg DAILY PO 11/22/24 10:00 Citalopram Hydrobromide 40 mg DAILY PO 11/23/24 10:00 Diagnostic Test (Pha) 1 strip ACHS 11/22/24 11:30 11/22/24 11:15 1 STRIP Insulin Human Regular HS SC 11/22/24 22:00 Insulin Human Regular AC SC 11/22/24 11:30 Dextrose 50 ml UD PRN IV 11/22/24 07:30 Lactated Ringer's 1,000 ml @ 100 mls/hr Q10H IV 11/22/24 07:30 11/22/24 10:41 100 MLS/HR Oxycodone/ Acetaminophen 1 tab Q4HP PRN PO 11/22/24 07:30 Hydromorphone HCl 1 mg Q2HP PRN IV 11/22/24 07:30 Docusate Sodium 100 mg Q12HR PO 11/22/24 10:00 11/22/24 10:43 100 MG Nitroglycerin 0.4 mg Q5MINP PRN SL 11/22/24 07:30 Morphine Sulfate 2 mg Q30M PRN IV 11/22/24 07:30 Diphenhydramine HCl 25 mg Q4HP PRN IV 11/22/24 09:30 Ondansetron HCl 4 mg Q4HP PRN IV 11/22/24 09:30 Cefazolin Sodium 50 ml @ 50 mls/hr Q6H IV 11/22/24 13:30 11/23/24 02:29 Exam Vital Signs Vital Signs Date Time Temp Pulse Resp B/P (MAP) Pulse Ox O2 Delivery O2 Flow Rate FiO2 11/22/24 12:50 12 93/52 (66) 98 11/22/24 09:15 74 11/22/24 09:05 Room Air 0 11/22/24 09:05 100 11/22/24 09:05 97.7 97.7 Labs/Xrays Labs Test 11/22/24 11:11 11/19/24 10:00 Range/Units POC Glucose 114 H 70-106 mg/dl White Blood Count 5.7 4.4-10.8 10^3/uL Red Blood Count 4.22 4.0-5.20 10^6/uL Hemoglobin 12.3 12.2-16.2 g/dL Hematocrit 35.4 L 36.0-46.0 % Mean Corpuscular Volume 83.8 80.0-100.0 fL Mean Corpuscular Hemoglobin 29.1 28.0-32.0 pg Mean Corpuscular Hemoglobin Concent 34.7 32.0-36.0 g/dL Red Cell Distribution Width 13.0 11.8-14.3 % Platelet Count 230 140-450 10^3/uL Mean Platelet Volume 8.2 6.9-10.8 fL Neutrophils (%) (Auto) 46.5 37.0-80.0 % Lymphocytes (%) (Auto) 44.7 10.0-50.0 % Monocytes (%) (Auto) 6.6 0.0-12.0 % Eosinophils (%) (Auto) 1.5 0.0-7.0 % Basophils (%) (Auto) 0.7 0.0-2.0 % Neutrophils # (Auto) 2.7 1.6-8.6 10 ^3/uL Lymphocytes # (Auto) 2.6 0.4-5.4 10 ^3/uL Monocytes # (Auto) 0.4 0-1.3 10 ^3/uL Eosinophils # (Auto) 0.1 0-0.8 10 ^3/uL Basophils # (Auto) 0 0-0.2 10 ^3/uL Nucleated Red Blood Cells 0.1 % Prothrombin Time 10.6 9.3-11.8 sec Prothrombin Time INR 1.00 0.9-1.15 Activated Partial Thromboplast Time 31.3 24.5-34.5 SEC Urine Color Yellow Yellow Urine Clarity Turbid H Clear Urine pH 6.0 5.0-9.0 Urine Specific [place] 1.024 1.001-1.035 Urine Protein Trace H Negative Urine Ketones Trace Negative Urine Blood Negative Negative /uL Urine Nitrite Negative Negative Urine Bilirubin Negative Negative Urine Urobilinogen Normal Negative mg/dL Urine Leukocyte Esterase Negative Negative /uL Urine RBC 2 0 - 4 /hpf Urine Microscopic WBC 1 0-5 /HPF Urine Squamous Epithelial Cells Few <5 /hpf Urine Bacteria None seen None Seen /hpf Urine Mucus Few None Seen Urine Glucose Normal Normal mg/dL Sodium Level 142 136-145 mmol/L Potassium Level 3.0 L 3.5-5.1 mmol/L Chloride Level 103 98-107 mmol/L Carbon Dioxide Level 28 20-31 mmol/L Anion Gap 11 5-15 Blood Urea Nitrogen 9 9-23 mg/dL Creatinine 0.57 0.550-1.02 mg/dL Glomerular Filtration Rate Calc 105 >90 mL/min BUN/Creatinine Ratio 15.8 10.0-20.0 Serum Glucose 93 74-106 mg/dL Calcium Level 9.0 8.7-10.4 mg/dL Total Bilirubin 0.3 0.2-1.0 mg/dL Aspartate Amino Transferase (AST) 19 13-40 U/L Alanine Aminotransferase (ALT) 22 7-40 U/L Alkaline Phosphatase 65 46-116 U/L Total Protein 6.3 5.7-8.2 g/dL Albumin 4.1 3.2-4.8 g/dL SEPSIS Sepsis Screen Physician Orders Hydrochlorothiazide Tablet (Hydrochlorot (11/22/24 10:00) Glucose Blood (Accu-Chek Comfort Curve T (11/22/24 11:30) Insulin R (Human) (Insulin R) (11/22/24 22:00) Insulin R (Human) (Insulin R) (11/22/24 11:30) Dextrose 50% Syringe (11/22/24 07:30) Patient Condition Stable (11/22/24 07:17) Hemoglobin & Hematocrit (11/23/24 07:00) Hemoglobin & Hematocrit (11/24/24 07:00) Hemoglobin & Hematocrit (11/25/24 07:00) Consistent Carb(Ccho)Diabetes (11/22/24 Lunch) Vital Signs .PER UNIT PROTOCOL (11/22/24 07:17) Weight-Bearing Restrictions (11/22/24 07:17) Lactated Ringer's (11/22/24 07:30) Oxycodone W/ Acet 5/325mg Tab (Percocet (11/22/24 07:30) Hydromorphone Injection (Dilaudid Inject (11/22/24 07:30) Docusate Sodium Capsule (Colace Capsule) (11/22/24 10:00) Comprehensive Metabolic Panel (11/23/24 04:00) Pt Request For Service (11/22/24 07:17) Call/Page Hospitalist/Atten Fo (11/22/24 07:17) Pelvis Ap (11/22/24 07:17) Incentive Spirometry (11/22/24 07:17) Nitroglycerin Sublingual (Ntrostat Subli (11/22/24 07:30) Morphine Sulfate Injection (11/22/24 07:30) Stat Ekg For Chest Pain (11/22/24 07:17) Notify Md Of Changes From Base (11/22/24 07:17) Dinkey Operator For 24 Hours (11/22/24 07:17) Emergency Dysrhythmia Protocol (11/22/24 07:17) Rhythm Strips Once Every Shift (11/22/24 07:17) Oxygen By Nasal Cannula (11/22/24 07:17) * Hospitalist Consult (11/22/24 ) Pain Medication As Ordered (11/22/24 09:16) Diphenhdramine Injection (Benadryl Injec (11/22/24 09:30) Ondansetron Hcl (Zofran) (11/22/24 09:30) Received Epi/Spinal Morphine (11/22/24 09:16) Admit (11/22/24 09:23) Citalopram Tablet (Celexa Tablet) (11/23/24 10:00) Cefazolin 1gm/50ml (Ancef) (11/22/24 13:30) Hydromorphone Injection (Dilaudid Inject (11/22/24 14:30) Glucose Blood (Accu-Chek Comfort Curve T (11/22/24 17:00) Mild Sliding Scale (11/22/24 17:00) Dextrose 50% Syringe (11/22/24 14:30) Complete Blood Count (11/23/24 06:00) Comprehensive Metabolic Panel (11/23/24 06:00) Hemoglobin A1c (11/23/24 06:00) Vital Signs Date Time Temp Pulse Resp B/P (MAP) Pulse Ox O2 Delivery O2 Flow Rate FiO2 11/22/24 12:50 12 93/52 (66) 98 11/22/24 11:50 13 98/56 (70) 98 11/22/24 10:50 12 104/61 (75) 99 11/22/24 10:43 101/54 11/22/24 10:20 13 101/54 (70) 100 11/22/24 09:50 12 108/55 (72) 95 11/22/24 09:35 12 111/52 (71) 100 11/22/24 09:20 12 109/53 (71) 93 11/22/24 09:15 74 15 101/55 (70) 93 11/22/24 09:10 80 13 103/55 (71) 99 11/22/24 09:05 79 12 100 Room Air 0 11/22/24 09:05 0 100 11/22/24 09:05 97.7 79 12 107/53 (71) 100 97.7 Medications Medications Dose Ordered Sig/Shalonda Route Start Time Stop Time Status Last Admin Dose Admin Acetaminophen 1,000 mg ONCE ONCE IV 11/22/24 06:15 11/22/24 06:17 DC 11/22/24 07:05 1,000 MG Acetaminophen 1,000 mg ONCE ONCE IV 11/22/24 09:30 11/22/24 10:02 DC 11/22/24 10:11 1,000 MG Celecoxib 400 mg ONCE ONCE PO 11/22/24 06:15 11/22/24 06:17 DC 11/22/24 07:05 400 MG Diagnostic Test (Pha) 1 strip ACHS 11/22/24 11:30 11/22/24 11:15 1 STRIP Docusate Sodium 100 mg Q12HR PO 11/22/24 10:00 11/22/24 10:43 100 MG Ketorolac Tromethamine 30 mg STK-MED ONCE .ROUTE 11/22/24 07:04 11/22/24 07:01 DC 11/22/24 08:30 30 MG Lactated Ringer's 1,000 ml @ 100 mls/hr Q10H IV 11/22/24 07:30 11/22/24 10:41 100 MLS/HR Morphine Sulfate 5 mg STK-MED ONCE .ROUTE 11/22/24 07:04 11/22/24 07:00 DC 11/22/24 08:30 4.8 MG Pregabalin 300 mg ONCE ONCE PO 11/22/24 06:15 11/22/24 06:17 DC 11/22/24 07:05 300 MG Vancomycin HCl 2,000 mg STK-MED ONCE .ROUTE 11/22/24 06:11/22/24 06:21 DC 11/22/24 08:25 2,000 MG Assessment/Plan Assessment/Plan see dictated note Plan discussed with: Patient My Orders Orders - ALISA MENDIOLA MD Procedure Category Date Status Time Hydromorphone PHA 11/22/24 Verified Injection (Dilaudid 14:30 Glucose Blood PHA 11/22/24 Verified (Accu-Chek Comfort 17:00 Mild Sliding Scale PHA 11/22/24 Verified 17:00 Dextrose 50% Syringe PHA 11/22/24 Verified 14:30 Complete Blood Count LAB 11/23/24 Verified 06:00 Comprehensive LAB 11/23/24 Verified Metabolic Panel 06:00 Hemoglobin A1c LAB 11/23/24 Verified 06:00 Date of Service: Nov 22, 2024 Billing Provider: ALISA MENDIOLA MD Common Visit Codes: [id number] INP/OBS CARE (HIGH) ALISA MENDIOLA MD Nov 22, 2024 14:28
--- NOTE | 2024-11-22 14:48 | DVHHP ---
ADMIT DATE: 11/22/2024 HISTORY OF PRESENT ILLNESS: The patient is a 59-year-old lady who was admitted after she underwent surgery of the left hip for DJD of the hip. The patient at this time denies any significant pain. No chest pain, no shortness of breath, no nausea or vomiting. REVIEW OF SYSTEMS: Review of rest of systems otherwise currently negative. PAST MEDICAL HISTORY: Significant for diabetes, questionable hypertension, depression. MEDICATIONS: She takes Lexapro, hydrochlorothiazide, and metformin. ALLERGIES: No known drug allergies. SOCIAL HISTORY: Denies smoking or alcohol. She lives at home with her . FAMILY HISTORY: Negative. PHYSICAL EXAMINATION: GENERAL: The patient is awake, alert. VITAL SIGNS: Temperature of 97.7, pulse of 74 per minute, blood pressure 104/61. SHEENT: Unremarkable. NECK: There is no JVD. LUNGS: Lungs are equal bilaterally. No added sounds. CARDIOVASCULAR: S1 and S2 is regular without murmurs. ABDOMEN: Soft. There is no organomegaly. NEUROLOGIC: Nonfocal. MUSCULOSKELETAL: There is a dressing at the site of the left hip surgery. EXTREMITIES: No pedal edema. ASSESSMENT AND PLAN: * Diabetes mellitus, for which she will be placed on sliding scale insulin. * Questionable hypertension/fluid retention. * Obesity. * Depression. * Status post left hip surgery for DJD of the hip. The patient will be placed on pain medications and receive physical therapy. MD CATALINA Farrell/BAL TID: [id number] RECEIPT: [id number]
[2024-11-22] MEDS: ONDANSETRON HCL 4 MG/2 ML VIAL IV PRN (15:53)
[2024-11-22] MEDS: OXYCODONE W/ ACETAMINOPHEN 5/325MG TABLET PO PRN (15:53)
[2024-11-22] MEDS: ceFAZolin 1GM/50ML 50 ML IV SCH (15:54)
[2024-11-22] MEDS ORDERED: HYDROMORPHONE HCL 1 MG/ML INJ IV PRN (16:00)
[2024-11-22] MEDS ORDERED: InsuLIN REG 1unit/0.01ml Soln (100units/ml) SC SCH (22:00)
[2024-11-23] VITALS (16 sets, daily range): BP systolic 88–106; BP diastolic 7–76; PULSE 69–86; RESP 16–19; TEMP 97.1–98.5; O2SAT 90–98
[2024-11-23 05:19] LABS: Hematocrit 28.3 % (36.0-46.0); Hemoglobin 10.2 g/dL (12.2-16.2); Mean Corpuscular Hemoglobin 29.9 pg (28.0-32.0); Mean Corpuscular Volume 82.7 fL (80.0-100.0); Nucleated Red Blood Cells % 0.0 %
[2024-11-23 05:32] LABS: Alanine Aminotransferase 21 U/L (7-40); Albumin 3.2 g/dL (3.2-4.8); Alkaline Phosphatase 53 U/L (46-116); Anion Gap 8 (5-15); BUN/Creatinine Ratio 13.0 (10.0-20.0); Carbon Dioxide 28 mmol/L (20-31); Chloride 106 mmol/L (98-107); Sodium 142 mmol/L (136-145)
[2024-11-23 05:53] LABS: Bilirubin, Total 0.2 mg/dL (0.2-1.0); Blood Urea Nitrogen 7 mg/dL (9-23); Calcium 8.2 mg/dL (8.7-10.4); Glucose 141 mg/dL (74-106); Potassium 3.3 mmol/L (3.5-5.1); Total Protein 5.0 g/dL (5.7-8.2)
--- NOTE | 2024-11-23 08:24 | DVHPN2 ---
Progress Note Date Seen: Nov 23, 2024 Medical Necessity Reason Pt with a Central, PICC or Fol: No Subjective Patient reports: No new complaints Objective vital signs Vital Sign Date Time Temp Pulse Resp B/P (MAP) Pulse Ox O2 Delivery O2 Flow Rate FiO2 11/23/24 05:33 77 18 93 11/23/24 05:00 97.1 98/58 (71) 97.1 11/22/24 20:00 Room Air* 0 21 Total Intake and Output 11/22/24 11/22/24 11/23/24 15:00 23:00 07:00 Intake Total 600 ml Balance 600 ml medications Current Medications Medications Dose Ordered Sig/Shalonda Route Start Time Stop Time Status Last Admin Dose Admin Citalopram Hydrobromide 40 mg DAILY PO 11/23/24 10:00 Lactated Ringer's 1,000 ml @ 100 mls/hr Q10H IV 11/22/24 07:30 11/22/24 10:41 100 MLS/HR Oxycodone/ Acetaminophen 1 tab Q4HP PRN PO 11/22/24 07:30 11/23/24 03:52 1 TAB Docusate Sodium 100 mg Q12HR PO 11/22/24 10:00 11/22/24 21:49 100 MG Nitroglycerin 0.4 mg Q5MINP PRN SL 11/22/24 07:30 Morphine Sulfate 2 mg Q30M PRN IV 11/22/24 07:30 Diphenhydramine HCl 25 mg Q4HP PRN IV 11/22/24 09:30 Ondansetron HCl 4 mg Q4HP PRN IV 11/22/24 09:30 11/23/24 03:53 4 MG Hydromorphone HCl 1 mg Q3HP PRN IV 11/22/24 16:00 Diagnostic Test (Pha) 1 strip ACHS 11/22/24 17:00 11/22/24 22:00 1 STRIP Insulin Human Regular ACHS SC 11/22/24 17:00 Dextrose 50 ml UD PRN IV 11/22/24 14:30 Examination: GENERAL:Normal, MSK:Abnormal laboratory and microbiology Laboratory Tests 11/23/24 04:49 Test 11/23/24 04:49 Range/Units Serum Glucose 141 H 74-106 mg/dL Problem List/Assessment/Plan Problem List/Assessment/Plan 59 year old female who is s/p Left SHUN POD 1 1. pain control 2. DVT ppx 3. WBAT LLE with walker 4. Prescriptions for percocet, colace, aspirin, keflex and zofran to be sent by [facility] TEJINDER [facility] to preferred [facility] [employer] on [address] 5. Follow up in 2 weeks at [facility] ortho clinic as scheduled 6. Aquacel to remain in place for 2 weeks 7. clear for discharge from orthopedic standpoint with the following discharge recommendations: POSTOPERATIVE Posterior Total Hip INSTRUCTIONS Activity: 1. You can bear as much weight as you tolerate on your hip unless specifically instructed otherwise. You may use the walking aid which you were discharged with and switch to a cane whenever you feel comfortable doing so. You should use an assistive device until you can walk comfortably without it. Keep in mind that every patient moves at their own speed of recovery so take your time. 2. A physical therapist will visit you at home. 3. Although guarantees against a dislocation do not exist, the hip was noted to be sufficiently stable in surgery. Below are motions that you should dischargenot do for 4-6 weeks, depending on the surgical approach used. If there are questions, please call the office. a. Bend forward past 90 degrees b. Sit on a regular low chair, couch, car seat etc... c. Cross your legs d. Use a regular low toilet seat. e. Sleep on your stomach or on either side. 3. High impact activity such as jumping, aerobics, tennis, and skiing are not permitted during the first 3 months after surgery. These activities can contribute to accelerated wear and should be done with caution after this time. Discuss this with your surgeon if you have questions. 4. Although a bath or whirlpool is NOT permitted during the first 2-3 weeks, you may shower as soon as you get home from the hospital provided you are able to keep your bandage clean and dry and there is no wound drainage. If you are unable to place a secured covering over your bandage bed bath/sponge bath may likely be the more appropriate option. 5. Swimming is not permitted until the wound is healed, which typically occurs approximately 3-4 weeks after surgery. Wound Management: If the wound is draining please change the gauze pad on the wound until it stops. If drainage persists past 10 days please notify our office. If there is a sticky gel dressing over your wound, you may leave this in place for as long as it is clean and dry. If it becomes loose or causes skin irritation, it is OK to remove it and place clean gauze over your wound. 1. You might notice some bruising around the surgical site, this is normal. 2. Check your temperature on a daily basis. Please note that a low-grade temp below 101 is not uncommon after surgery especially during the first 3 days. Notify the office if your temperature spikes above 101.5 after the 3rd post- operative date. 3. Many patients experience significant swelling in the thigh, this may extend below the knee and sometimes to the ankle. Swelling increases during the first week and subsides during the following week. 4. Provided you have been on a blood thinner since surgery and have been up and about at least three times per day, the risk of a blood clot is low and this swelling is an expected part of recovery. It will largely or completely resolve by your first post-operative visit. 5. [place], if present, will be removed at 2 weeks during initial post-op visit. Medications: 1. You will be discharged with pain medication, Aspirin as a blood thinner and sometimes an anti-inflammatory medication such as Celebrex or Mobic might be prescribed. Please follow the instructions regarding these medicines as provided by your nurse at the hospital. 2. Narcotic pain medication has side effects, including constipation. Please ensure you continue to take stool softeners (Colace, Senna) while taking your pain medication to help protect against constipation. Getting up and moving around at least a few times per day helps with this also. 3. Lovenox 40 Sq x 12 days followed by one regular strength 325 mg coated aspirin daily for 4 weeks after surgery. Then, take one baby aspirin, 81 mg daily for 6 weeks more. A major, yet preventable, complication of Orthopaedic Surgery is a blood clot (DVT). It is important not to miss any doses of this important medication. 4. You should restart all of your prescription medications once discharged unless specifically instructed otherwise. 5. Herbal supplements may be restarted 2 weeks after surgery. Miscellaneous issues: 1. Driving is not permitted within the first 2 weeks. 2. Your first postoperative visit will take place 2weeks after discharge. Please call the office to arrange this appointment. 3. Antibiotic preventative treatment is required before dental or other invasive procedures. Please ask your surgeon about this at your first postoperative visit. Your hip replacement contains metal which may activate metal detectors. You may wish to carry a letter from your surgeon to communicate this to security personnel. If you experience chest pain, shortness of breath or severe painful calf swelling, go to the nearest emergency room to be evaluated. Please call our office once your situation is stabilized. Plan discussed with: Patient Date of Service: Nov 23, 2024 Billing Provider: ANT BAIRD MD Common Visit Codes: NOT BILLABLE LIUDMILA SMITH NP Nov 23, 2024 08:24
[2024-11-23] MEDS: CITALOPRAM HYDROBR 20 MG TAB PO SCH (10:00)
--- NOTE | 2024-11-23 10:30 | DVHDS2 ---
Discharge Summary Date of Admission Nov 22, 2024 at 07:17 Date of Discharge: Nov 23, 2024 Labs/Diagnostic Data: Laboratory Results Test 11/23/24 06:06 11/23/24 04:49 11/19/24 10:00 POC Glucose 121 mg/dl (70-106) White Blood Count 9.9 10^3/uL (4.4-10.8) Red Blood Count 3.43 10^6/uL (4.0-5.20) Hemoglobin 10.2 g/dL (12.2-16.2) Hematocrit 28.3 % (36.0-46.0) Mean Corpuscular Volume 82.7 fL (80.0-100.0) Mean Corpuscular Hemoglobin 29.9 pg (28.0-32.0) Mean Corpuscular Hemoglobin Concent 36.1 g/dL (32.0-36.0) Red Cell Distribution Width 13.1 % (11.8-14.3) Platelet Count 177 10^3/uL (140-450) Mean Platelet Volume 8.4 fL (6.9-10.8) Neutrophils (%) (Auto) 80.9 % (37.0-80.0) Lymphocytes (%) (Auto) 12.2 % (10.0-50.0) Monocytes (%) (Auto) 6.8 % (0.0-12.0) Eosinophils (%) (Auto) 0.0 % (0.0-7.0) Basophils (%) (Auto) 0.1 % (0.0-2.0) Neutrophils # (Auto) 8.0 10 ^3/uL (1.6-8.6) Lymphocytes # (Auto) 1.2 10 ^3/uL (0.4-5.4) Monocytes # (Auto) 0.7 10 ^3/uL (0-1.3) Eosinophils # (Auto) 0 10 ^3/uL (0-0.8) Basophils # (Auto) 0 10 ^3/uL (0-0.2) Nucleated Red Blood Cells 0.0 % Sodium Level 142 mmol/L (136-145) Potassium Level 3.3 mmol/L (3.5-5.1) Chloride Level 106 mmol/L (98-107) Carbon Dioxide Level 28 mmol/L (20-31) Anion Gap 8 (5-15) Blood Urea Nitrogen 7 mg/dL (9-23) Creatinine 0.54 mg/dL (0.550-1.02) Glomerular Filtration Rate Calc 106 mL/min (>90) BUN/Creatinine Ratio 13.0 (10.0-20.0) Serum Glucose 141 mg/dL (74-106) Hemoglobin A1c 5.0 % A1C (<5.7) Calcium Level 8.2 mg/dL (8.7-10.4) Total Bilirubin 0.2 mg/dL (0.2-1.0) Aspartate Amino Transferase (AST) 27 U/L (13-40) Alanine Aminotransferase (ALT) 21 U/L (7-40) Alkaline Phosphatase 53 U/L (46-116) Total Protein 5.0 g/dL (5.7-8.2) Albumin 3.2 g/dL (3.2-4.8) Prothrombin Time 10.6 sec (9.3-11.8) Prothrombin Time INR 1.00 (0.9-1.15) Activated Partial Thromboplast Time 31.3 SEC (24.5-34.5) Urine Color Yellow (Yellow) Urine Clarity Turbid (Clear) Urine pH 6.0 (5.0-9.0) Urine Specific [place] 1.024 (1.001-1.035) Urine Protein Trace (Negative) Urine Ketones Trace (Negative) Urine Blood Negative /uL (Negative) Urine Nitrite Negative (Negative) Urine Bilirubin Negative (Negative) Urine Urobilinogen Normal mg/dL (Negative) Urine Leukocyte Esterase Negative /uL (Negative) Urine RBC 2 /hpf (0 - 4) Urine Microscopic WBC 1 /HPF (0-5) Urine Squamous Epithelial Cells Few /hpf (<5) Urine Bacteria None seen /hpf (None Seen) Urine Mucus Few (None Seen) Urine Glucose Normal mg/dL (Normal) Other Laboratory Tests 11/23/24 04:49 Brief Hx & Hospital Course: SEE DICTATED NOTE Condition at Discharge: Good Final Diagnosis/Problems List LEFT HIP SURGERY Discharge Disposition: Home Discharge Instruct/Medications Diet: Cardiac 2g Na,low cholest Activity: No Restrictions, As Tolerated Follow Up/Referral: FU WIHT PCP/ORTHO Medications: RESUME HOME MEDS MONITOR BP REST MEDS PER ORTHO Scheduled Escitalopram Oxalate (Lexapro), 20 MG PO DAILY, (Reported) Hctz (Hydrochlorothiazide), 25 MG PO DAILY, (Reported) Metformin Hydrochloride (Metformin Hcl), 850 MG PO BID, (Reported) Miscellaneous Medications Cholecalciferol (D3 2000), Unknown Dose PO, (Reported) Discontinued Medications Paroxetine (Paxil Tablet), 40 MG PO DAILY, (Reported) Discontinued Reason: Prescription changed Discharge Statement: "Patient was advised to return to the ER or call 911 if any headaches, dizziness, shortness of breath, chest pain, abdominal pain, bleeding, fevers, or worsening of medical condition. Patient was counseled about treatment plan, medications, possible side effects, patientverbalized understanding. All questions were answered to the best of my ability. This discharge took greater then 30 minutes in planning, reviewing documentation, counseling the patient, and discussing with other team members." ASSESSMENT ASSESSMENT Assessment LEFT HIP SURGERY Date of Service: Nov 23, 2024 Billing Provider: ALISA MENDIOLA MD Common Visit Codes: 89097-MYR/OBS DISCH DAY >30min ALISA MENDIOLA MD Nov 23, 2024 10:30
--- NOTE | 2024-11-23 10:45 | DVHDS ---
HISTORY OF PRESENT ILLNESS: The patient is a 59-year-old lady who was admitted after she underwent surgery for left hip for DJD. She has a history of diabetes, depression, and hypertension. HOSPITAL COURSE: The patient did well postoperatively. Hemoglobin A1c was 5.0. Hemoglobin is 10.2. The patient will now be discharged home to resume her home medications and to be on meds as per Orthopedics. She will follow up with her primary and Orthopedics. FINAL DIAGNOSES: * Diabetes mellitus. * Questionable hypertension. * Obesity. * Depression. * Status post left hip surgery for DJD of the hip. Time spent in discharge planning and review of plan with the patient, nursing and family at bedside was 38 minutes. MD CATALINA Farrell/TITA TID: [id number] RECEIPT: [id number]
[2024-11-23] MEDS: POTASSIUM CHL 20 Meq TABLET PO ONE (12:02)
== END 2024-11-23 13:30 | disposition home or self-care (01) | DRG 470 ==
LOC: SUR 06:03 → OVERFLOW 07:17 → TELE-EAST 13:43
PROVIDERS: ADMIT Internal Medicine; ATTEND Internal Medicine
PROC: 0SRB06Z Replacement of Left Hip Joint with Oxidized Zirconium on Polyethylene Synthetic Substitute, Open Approach (ICD-10-PCS; principal; 2024-11-22 07:12)
DX: M16.12 Unilateral primary osteoarthritis, left hip (principal); E11.9 Type 2 diabetes mellitus without complications; F32.A Depression, unspecified; E66.9 Obesity, unspecified; I10 Essential (primary) hypertension; Z68.33 Body mass index [BMI] 33.0-33.9, adult
CPT/HCPCS: 36415; 72170; 80053; 81001; 82962; 83036; 85025; 85610; 85730; 86850; 86900; 86901; 97110; 97116; 97163; G0378; J0131; J1100; J1885; J2003; J2250; J2405; J2704; J3490

== ENCOUNTER 2024-12-25 12:34 | Emergency (ER) | payer BC, OTHER ==
[~2024-12-25] VITALS: Ht 157.5 cm; Wt 78.0 kg
[2024-12-25 12:36] VITALS: BP 100/66; PULSE 89; RESP 20; TEMP 98.1; O2SAT 100
[2024-12-25 13:38] LABS: Hematocrit 36.8 % (36.0-46.0); Hemoglobin 12.3 g/dL (12.2-16.2); Mean Corpuscular Hemoglobin 29.0 pg (28.0-32.0); Mean Corpuscular Volume 86.3 fL (80.0-100.0); Nucleated Red Blood Cells % 0.1 %
--- NOTE | 2024-12-25 13:43 | DVH ---
CLINICAL HISTORY: left calf pain TECHNIQUE: Color and duplex doppler imagine of the left lower extremity veins was performed. Vessel compression if possible was also performed. COMPARISON: XY L HIP 1V XRAY on DOS: 08/09/24, XY R HIP 1V XRAY on DOS: 08/09/24, XY L HIP 1V XRAY on DOS: 05/10/24, XY R HIP 1V XRAY on DOS: 05/10/24, MRI MRI L HIP WO CONTRAST on DOS: 05/05/24 FINDINGS: Left common femoral vein: Normal compressibility and flow. Left superficial femoral vein: Normal compressibility and flow. Left popliteal vein: Normal compressibility and flow. IMPRESSION: NO SONOGRAPHIC EVIDENCE FOR DEEP VENOUS THROMBOSIS IN THE LEFT LOWER EXTREMITY VEINS.
[2024-12-25 13:47] LABS: Chloride 102 mmol/L (98-107); Potassium 3.8 mmol/L (3.5-5.1); Sodium 142 mmol/L (136-145)
[2024-12-25 13:48] LABS: Anion Gap 9 (5-15); Calcium 9.4 mg/dL (8.7-10.4)
[2024-12-25 13:53] LABS: BUN/Creatinine Ratio 12.9 (10.0-20.0)
[2024-12-25 13:55] LABS: Blood Urea Nitrogen 9 mg/dL (9-23); Carbon Dioxide 31 mmol/L (20-31); Glucose 137 mg/dL (74-106)
[2024-12-25] MEDS ORDERED: HYDR-4798 PO (14:16)
--- NOTE | 2024-12-25 14:26 | ED.PDOC ---
History of Present Illness HPI Comments 39-year-old female presents to the ER with a prior medical history of anxiety, arthritis, depression, diabetes, hypertension: Sugar history of appendectomy, BTL, cholecystectomy, hysterectomy, tonsillectomy left hip replacement in November 22 and a chief complaint of lower extremity pain. Patient reports on having a CV healing hip status post surgery on November 22 but has been recently having discomfort to the left thigh and calf for the past four days. Patient notes that the current pain is different from the surgery. Denies any other symptoms at this time. Denies chills, fever, N/V/D, SOB, CP. No other associated symptoms, modifiers, recent injuries or sick contacts present at this time. Chief Complaint: Lower Extremity Time Seen by MD: 13:35 Primary Care Provider: TANISHA Reviewed Notes: Nurses Notes, Medications, Allergies Allergies: Coded Allergies: NO KNOWN ALLERGIES (Unverified , 01/16/10) Home Meds Active Scripts Hydrocodone-Acetaminophen (Hydrocodone Bitartrate/AC 10-325 mg) 1 Tab Tab, 1 TAB PO QID PRN for 4 Days, #16 TAB Prov:BRYAN FERNANDEZ MD 12/25/24 Reported Medications Cholecalciferol (D3 2000) 2,000 Unit Cap, PO, CAP 11/19/24 Escitalopram Oxalate (Lexapro) 20 Mg Tab, 20 MG PO DAILY, TAB 11/19/24 Metformin Hydrochloride (Metformin Hcl) 850 Mg Tab, 850 MG PO BID for 30 Days, MG 06/15/19 Hctz (Hydrochlorothiazide) 25 Mg Tab, 25 MG PO DAILY, TAB 06/15/19 Information Source: Patient Mode of Arrival: Ambulatory Severity: Moderate Timing: Days Duration: Since onset, Days Prehospital treatment: None Past Medical History PAST MEDICAL HISTORY: Anxiety, Arthritis, Depression, DM, HTN Surgical History: Appendectomy, BTL, Cholecystectomy, Hysterectomy, T onsillectomy Surgical History (Other): Left hip replacement REGULATORY SERVICES CONSULTANT History: No Pertinent REGULATORY SERVICES CONSULTANT History Family History Family History: Reviewed,noncontributory to illness, Unknown Social History Smoker: Non-Smoker, Quit Greater Than 1 Year Alcohol: Denies ETOH Use Drugs: Denies Drug Use Lives In: Home Constitutional: denies: chills, diaphoresis, fatigue, fever, malaise, sweats, weakness, others EENTM: denies: blurred vision, double vision, ear bleeding, ear discharge, ear drainage, ear pain, ear ringing, eye pain, eye redness, hearing loss, mouth pain, mouth swelling, nasal discharge, nose bleeding, nose congestion, nose pain, photophobia, tearing, throat pain, throat swelling, voice changes, others Respiratory: denies: cough, hemoptysis, orthopnea, SOB at rest, shortness of breath, SOB with excertion, stridor, wheezing, others Cardiovascular: denies: chest pain, dizzy spells, diaphoresis, Dyspnea on exertion, edema, irregular heart beat, left arm pain, lightheadedness, palpitations, PND, syncope, others Gastrointestinal: denies: abdomen distended, abdominal pain, blood streaked bowels, constipated, diarrhea, dysphagia, difficulty swallowing, hematemesis, melena, nausea, poor appetite, poor fluid intake, rectal bleeding, rectal pain, vomiting, others Genitourinary: denies: abnormal vagina bleeding, burning, dyspareunia, dysuria, flank pain, frequency, hematuria, incontinence, pain, , vagina discharge, urgency, others Neurological: denies: dizziness, fainting, headache, left sided numbness, left sided weakness, numbness, paresthesia, pre-existing deficit, right sided numbness, right sided weakness, seizure, speech problems, tingling, tremors, weakness, others Musculoskeletal: reports: others (Left calf and thigh tenderness); denies: back pain, gout, joint pain, joint swelling, muscle pain, muscle stiffness, neck pain Integumetry: denies: bruises, change in color, change in hair/nails, dryness, laceration, lesions, lumps, rash, wounds, others Allergic/Immunocompromised: denies: Difficulty Healing, Frequent Infections, Hives, Itching, others Hematologic/Lymphatic: denies: anemia, blood clots, easy bleeding, easy bruising, swollen glands, others Endocrine: denies: excessive hunger, excessive sweating, excessive thirst, excessive urination, flushing, intolerance to cold, intolerance to heat, unexplained weight gain, unexplained weight loss, others Psychiatric: denies: anxiety, bipolar disorder, depression, hopeless, panic disorder, schizophrenia, sleepless, suicidal, others All Other Systems: Reviewed and Negative Physical Exam Exam Comments Left calf and thigh tenderness General Appearance: No Apparent Distress, Normal HEENT: Normal ENT Inspection, Pharynx Normal, TMs Normal Neck: Full Range of Motion, Non-Tender, Normal, Normal Inspection Respiratory: Chest Non-Tender, Lungs Clear, No Accessory Muscle Use, No Respiratory Distress, Normal Breath Sounds Cardiovascular: No Edema, No JVD, No Murmur, No Gallop, Normal Peripheral Pulses, Regular Rate/Rhythm Breast Exam: Deferred Gastrointestinal: No Organomegaly, Non Tender, No Pulsatile Mass, Normal Bowel Sounds, Soft Genitalia: Deferred Pelvic: Deferred Rectal: Deferred Extremities: No calf tenderness, Normal capillary refill, Normal inspection, Normal range of motion, Non-tender, No pedal edema Musculoskeletal : Apperance: Normal Neurologic: Alert, stabber II-XII nml as Tested, No Motor Deficits, Normal Affect, Normal Mood, No Sensory Deficits Cerebellar Function: Normal Reflexes: Normal Skin: Dry, Normal Color, Warm Lymphatic: No Adenopathy Was a procedure done? Was a procedure done?: No Differential Dx Considerations may include: DVT, musculoskeletal strain X-Ray, Labs, Meds, VS Vital Signs Date Time Temp Pulse Resp B/P (MAP) Pulse Ox O2 Delivery O2 Flow Rate FiO2 12/25/24 12:36 98.1 89 20 100/66 100 98.1 Lab Test 12/25/24 12:55 Range/Units White Blood Count 5.7 4.4-10.8 10^3/uL Red Blood Count 4.26 4.0-5.20 10^6/uL Hemoglobin 12.3 12.2-16.2 g/dL Hematocrit 36.8 36.0-46.0 % Mean Corpuscular Volume 86.3 80.0-100.0 fL Mean Corpuscular Hemoglobin 29.0 28.0-32.0 pg Mean Corpuscular Hemoglobin Concent 33.5 32.0-36.0 g/dL Red Cell Distribution Width 14.0 11.8-14.3 % Platelet Count 232 140-450 10^3/uL Mean Platelet Volume 7.8 6.9-10.8 fL Neutrophils (%) (Auto) 49.4 37.0-80.0 % Lymphocytes (%) (Auto) 39.4 10.0-50.0 % Monocytes (%) (Auto) 6.0 0.0-12.0 % Eosinophils (%) (Auto) 4.3 0.0-7.0 % Basophils (%) (Auto) 0.9 0.0-2.0 % Neutrophils # (Auto) 2.8 1.6-8.6 10 ^3/uL Lymphocytes # (Auto) 2.2 0.4-5.4 10 ^3/uL Monocytes # (Auto) 0.3 0-1.3 10 ^3/uL Eosinophils # (Auto) 0.2 0-0.8 10 ^3/uL Basophils # (Auto) 0.1 0-0.2 10 ^3/uL Nucleated Red Blood Cells 0.1 % D-Dimer, Quantitative 2.14 H 0.0-0.49 mg/L FEU Sodium Level 142 136-145 mmol/L Potassium Level 3.8 3.5-5.1 mmol/L Chloride Level 102 98-107 mmol/L Carbon Dioxide Level 31 20-31 mmol/L Anion Gap 9 5-15 Blood Urea Nitrogen 9 9-23 mg/dL Creatinine 0.70 0.550-1.02 mg/dL Glomerular Filtration Rate Calc 100 >90 mL/min BUN/Creatinine Ratio 12.9 10.0-20.0 Serum Glucose 137 H 74-106 mg/dL Calcium Level 9.4 8.7-10.4 mg/dL Time of 1ST Reevaluation: 14:35 Reevaluation 1ST: Unchanged Patient Education/Counseling: Diagnosis, Treatment, Prognosis Family Education/Counseling: No Family Present SEPSIS Sepsis Screen Date sepsis recognized/suspect: Dec 25, 2024 Time Sepsis recognized/suspect: 1240 Recent Procedure: No On Antibiotic Therapy: No Respiratory Rate >20: No Heart Rate >90: No Temp<36 C (96.8 F) or >38.3 C: No SBP <90 or MAP <65 mmHG: No New Acute Mental Status Change: No Is the patient on CPAP, BIPAP,: No Physician Orders Lt Lower Dvt (12/25/24 12:45) Vital Signs Date Time Temp Pulse Resp B/P (MAP) Pulse Ox O2 Delivery O2 Flow Rate FiO2 12/25/24 12:36 98.1 89 20 100/66 100 98.1 Laboratory Tests Test 12/25/24 12:55 White Blood Count 5.7 10^3/uL (4.4-10.8) Departure 1 Departure Time of Disposition: 16:43 (Patient's ultrasound is negative. Patient's D- dimer is elevated. Counseled patient take a baby aspirin today. We will discharge her home with repeat ultrasound as follow up.) Impression: Primary Impression: Left leg pain Disposition: HOME / SELF CARE / HOMELESS Condition: Stable Additional Instructions: Your ultrasound was negative. Your D-dimer was elevated. You should follow up with the regular doctor for repeat ultrasound performed. You should take a baby aspirin a day. Your prescribed medication take as needed for pain. Your symptoms worsen or you have any other concerns please return to the emergency room e-Prescriptions Hydrocodone-Acetaminophen (Hydrocodone Bitartrate/AC 10-325 mg) 1 Tab Tab 1 TAB PO QID PRN for 4 Days, #16 TAB Prov: BRYAN FERNANDEZ MD 12/25/24 Critical Care Note Critical Care Time?: No Stability Stability form required: No I personally scribed for BRYAN FERNANDEZ MD ([email or web address]) on 12/25/24 at 14:26. Electronically submitted by Cuate Fofana ([email or web address]). BRYAN FERNANDEZ MD Dec 25, 2024 14:26
== END 2024-12-25 16:43 | disposition home or self-care (01) ==
LOC: ER 12:34
DX: M79.662 Pain in left lower leg (principal); F41.9 Anxiety disorder, unspecified; F32.A Depression, unspecified; E11.9 Type 2 diabetes mellitus without complications; I10 Essential (primary) hypertension; Z79.899 Other long term (current) drug therapy; Z90.49 Acquired absence of other specified parts of digestive tract; Z90.710 Acquired absence of both cervix and uterus
CPT/HCPCS: 36415; 80048; 85025; 85379; 93971